=== PATIENT | female | born 1950 | race Caucasian/White ===

== ENCOUNTER 2016-07-01 05:48 | Emergency (ER) | payer MEDICARE, OTHER ==
[2016-07-01] MEDS ORDERED: TYLENOL 325 MG PO ONE (06:05)
--- NOTE | 2016-07-01 06:09 | ERPHSYRPT ---
- History of Present Illness Time Seen by Provider: 07/01/16 06:01 Source: patient Exam Limitations: no limitations Patient Subjective Stated Complaint: REPORTS WITH COUGH, PRODUCTIVE OF YELLOW- BROWN SPUTUM, OVER THE LAST SEVERAL DAYS - FRONTAL NARVAEZ THAT AWOKE HER FROM SLEEP AT 0200 - REPORTS BACK AND NECK PAIN WELL RIB DISCOMFORT Triage Nursing Assessment: WC TO TREATMENT AREA - MOVES ALL EXTREMITIES WITH EQUAL STRENGTH. ALERT/ORIENTED - PLEASANT AFFECT. SKIN PALE/HOT/DRY - NO RASH/ INJURY. RESPS LABORED PER EXERTION ET DEMONSTRATES ORTHOPNEA. PHOTOPHOBIA Physician History: FOR THE PAST 2 DAYS PT HAS HAD COUGH AND INCREASED URINARY FREQUENCY; FOR THE PAST 4 HOURS CHILLS, SHORTNESS OF AIR, HEADACHE, BACK & RIB PAIN. Allergies/Adverse Reactions: Penicillins Allergy (Verified 07/01/16 05:50) Sulfa (Sulfonamide Antibiotics) [Sulfa(Sulfonamide Antibiotics)] Allergy ( Verified 07/01/16 05:50) tramadol [From Ultram] Adverse Reaction (Verified 07/01/16 06:00) Home Medications: Escitalopram Oxalate [Lexapro] 10 mg PO DAILY 09/26/12 [History] Montelukast Sodium 10 mg [Singulair 10 MG] 10 mg PO DAILY 09/26/12 [History] Phenytoin Sodium Extended [Dilantin] 300 mg PO HS 09/26/12 [History] Amlodipine Besylate [Norvasc] 0 mg PO DAILY 02/11/15 [History] Carvedilol [Coreg] 0 mg PO DAILY 02/11/15 [History] Losartan Potassium 1 tab PO DAILY 02/11/15 [History] Loratadine 10 mg [Claritin 10 mg] 10 mg PO DAILY 07/01/16 [History] Potassium Chloride 10 Meq Tab* [Klor Con 10 MEQ] 20 meq PO 07/01/16 [History] Hx Tetanus, Diphtheria Vaccination/Date Given: No Hx Influenza Vaccination/Date Given: Yes Hx Pneumococcal Vaccination/Date Given: Yes Immunizations Up to Date: No - Review of Systems Constitutional: Chills Respiratory: Cough, Dyspnea Cardiac: Other (RIB PAIN) Genitourinary Symptoms: Frequency Musculoskeletal: Back Pain Neurological: Headache Endocrine: No Excessive Sweating All Other Systems: Reviewed and Negative - Past Medical History Pertinent Past Medical History: Yes Neurological History: Epilepsy, Migraines ENT History: Cataracts Cardiac History: Angina, Arrhythmia, Hypertension Respiratory History: Asthma Musculoskeletal History: Arthritis, Degenerative Disk Disease, Osteoporosis History: No Pertinent History Psycho-Social History: No Pertinent History Female Reproductive Disorders: No Pertinent History - Past Surgical History Past Surgical History: Yes Neuro Surgical History: No Pertinent History Cardiac: Cardiac Catheterization Respiratory: No Pertinent History Gastrointestinal: Other Genitourinary: No Pertinent History Musculoskeletal: Orthopedic Surgery Female Surgical History: Hysterectomy Other Surgical History: cataract, left shoulder and hand, cyst off of stomach - Social History Smoking Status: Never smoker Exposure to second hand smoke: No Drug Use: none Patient Lives Alone: No - Female History Hx Last Menstrual Period: N/A Hx Now: No - Nursing Vital Signs Nursing Vital Signs: Initial Vital Signs Temperature 101.0 F Temperature Source Oral Pulse Rate 96 Respiratory Rate 20 Pain Intensity 9 - Physical Exam General Appearance: alert Eye Exam: PERRL/EOMI, eyes nml inspection Ears, Nose, Throat Exam: TMs normal, pharynx normal, moist mucous membranes Neck Exam: normal inspection Respiratory Exam: other (BRONCHIAL B.S. ALL ARMANDO.) Cardiovascular Exam: normal heart sounds Gastrointestinal/Abdomen Exam: soft, normal bowel sounds Back Exam: normal range of motion Extremity Exam: normal inspection, No pedal edema Neurologic Exam: alert, cooperative Skin Exam: warm, dry SpO2 Interpretation: normal SpO2: 96 Oxygen Delivery: Room Air - Course Nursing assessment & vital signs reviewed: Yes - Radiology Exams Chest X-ray Interpretation: Interpreted by me, No Pneumonia Ordered Tests: Active Orders 24 hr Category Date Time Status Clean Catch Urine Specimen STAT Care 07/01/16 06:05 Active IV Insertion STAT Care 07/01/16 06:05 Active CHEST 1 VIEW (PORTABLE) Stat Exams 07/01/16 06:08 Taken AMYLASE Stat Lab 07/01/16 06:19 Completed BLOOD CULTURE Stat Lab 07/01/16 06:19 Received BMP Stat Lab 07/01/16 09:30 Ordered CBC W DIFF Stat Lab 07/01/16 06:19 Completed CMP Stat Lab 07/01/16 06:19 Completed CULTURE,SPUTUM Stat Lab 07/01/16 06:49 Ordered CULTURE,URINE Stat Lab 07/01/16 06:45 Received LIPASE Stat Lab 07/01/16 06:19 Completed Manual Differential NC Stat Lab 07/01/16 06:19 Completed UA W/ MICROSCOPIC Stat Lab 07/01/16 06:06 Completed Respiratory Nebulizer STAT RT 07/01/16 06:47 Completed Medication Summary Generic Name Dose Route Start Last Admin Trade Name Juan PRN Reason Stop Dose Admin Sodium Chloride 1,000 mls @ 250 mls/hr 07/01/16 06:15 07/01/16 06:20 Sodium Chloride 0.9% 1000 Ml IV 07/31/16 06:14 250 mls/hr .Q4H PAZ Administration Azithromycin 250 mls @ 125 mls/hr 07/01/16 06:46 Zithromax 500 Mg/ 250 Ml Nacl Premix IV 07/01/16 08:45 STAT ONE Potassium Chloride 100 mls @ 50 mls/hr 07/01/16 06:50 07/01/16 07:15 Potassium Chloride 20 Meq In Water 100ml IV 07/01/16 08:49 50 mls/hr STAT ONE Administration Potassium Chloride 40 meq 07/01/16 10:00 Potassium Chl 40 Meq/30 Ml Oral Solution PO 07/31/16 09:59 DAILY PAZ Discontinued Medications Generic Name Dose Route Start Last Admin Trade Name Juan PRN Reason Stop Dose Admin Acetaminophen 650 mg 07/01/16 06:05 07/01/16 06:20 Tylenol 325 Mg PO 07/01/16 06:06 650 mg STAT ONE Administration Acetaminophen Confirm 07/01/16 06:12 Tylenol 325 Mg Administered 07/01/16 06:13 Dose 650 mg .ROUTE .STK-MED ONE Albuterol Sulfate 2.5 mg 07/01/16 06:46 07/01/16 06:54 Proventil 2.5 Mg/3 Ml Neb IH 07/01/16 06:47 2.5 mg STAT ONE Administration Albuterol Sulfate Confirm 07/01/16 06:54 Proventil 2.5 Mg/3 Ml Neb Administered 07/01/16 06:55 Dose 2.5 mg IH .STK-MED ONE Hydromorphone HCl 1 mg 07/01/16 06:45 07/01/16 06:57 Dilaudid 1 Mg/Ml Injection IV 07/01/16 06:46 1 mg STAT ONE Administration Hydromorphone HCl Confirm 07/01/16 06:53 Dilaudid 1 Mg/Ml Injection Administered 07/01/16 06:54 Dose 1 mg .ROUTE .STK-MED ONE Hydromorphone HCl 1 mg 07/01/16 07:12 Dilaudid 1 Mg/Ml Injection IV 07/01/16 07:13 STAT ONE Sodium Chloride Confirm 07/01/16 06:13 Sodium Chloride 0.9% 1000 Ml Administered 07/01/16 06:14 Dose 1,000 mls @ ud .ROUTE .STK-MED ONE Ceftriaxone Sodium/Dextrose 50 mls @ 100 mls/hr 07/01/16 06:46 07/01/16 07:00 Rocephin 1 Gm-D5w 50 Ml Bag IV 07/01/16 07:15 100 mls/hr STAT ONE Administration Ceftriaxone Sodium/Dextrose Confirm 07/01/16 06:53 Rocephin 1 Gm-D5w 50 Ml Bag Administered 07/01/16 06:54 Dose 50 mls @ ud IV .STK-MED ONE Potassium Chloride Confirm 07/01/16 07:13 Potassium Chloride 20 Meq In Water 100ml Administered 07/01/16 07:14 Dose 100 mls @ ud IV .STK-MED ONE Promethazine HCl 12.5 mg 07/01/16 06:45 07/01/16 06:56 Phenergan 25 Mg Inj IV 07/01/16 06:46 12.5 mg STAT ONE Administration Promethazine HCl Confirm 07/01/16 06:53 Phenergan 25 Mg Inj Administered 07/01/16 06:54 Dose 25 mg .ROUTE .STK-MED ONE Lab/Rad Data: Laboratory Result Diagrams 07/01/16 06:19 07/01/16 06:19 Laboratory Results 07/01/16 07/01/16 07/01/16 Range/Units 06:19 06:19 06:06 WBC 14.5 H (4.0-10.5) K/mm3 RBC 4.12 (4.1-5.4) M/mm3 Hgb 12.5 (12.0-16.0) gm/dl Hct 37.5 (35-47) % MCV 91.0 (78-100) fl MCH 30.3 (26-32) pg MCHC 33.3 (32-36) g/dl RDW 13.7 (11.5-14.0) % Plt Count 215 (150-450) K/mm3 MPV 10.7 H (6-9.5) fl Segmented Neutrophils 83 H (36.0-66.0) % Band Neutrophils 8 H (0.0-2.0) % Lymphocytes (Manual) 7 L (24-44) % Monocytes (Manual) 2 (0.0-12.0) % Differential Comment NORMAL Platelet Estimate NORMAL (NORMAL) Sodium 138 (136-145) mEq/L Potassium 2.6 L* (3.5-5.1) mEq/L Chloride 99 (98-107) mEq/L Carbon Dioxide 28.2 (21-32) mEq/L Anion Gap 14.7 (5-15) MEQ/L BUN 14 (9-20) mg/dL Creatinine 0.84 (0.55-1.30) mg/dl Estimated GFR > 60 ML/MIN Glucose 136 H (70-110) MG/DL Calcium 8.5 (8.5-10.1) mg/dL Total Bilirubin 0.7 (0.2-1.0) mg/dL AST 26 (15-37) U/L ALT 10 L (12-78) U/L Alkaline Phosphatase 104 (46-116) U/L Serum Total Protein 7.4 (6.4-8.2) gm/dL Albumin 3.8 (3.4-5.0) g/dL Amylase 43 (25-115) U/L Lipase 95 (73-393) U/L Ur Collection Type CLEAN CATCH Urine Color YELLOW (YELLOW) Urine Appearance CLEAR (CLEAR) Urine pH 7.0 (5-6) Ur Specific [place] 1.020 (1.005-1.025) Urine Protein TRACE (Negative) Urine Glucose (UA) NEGATIVE (NEGATIVE) mg/dL Urine Ketones NEGATIVE (NEGATIVE) Urine Nitrite NEGATIVE (NEGATIVE) Urine Bilirubin NEGATIVE (NEGATIVE) Urine Urobilinogen 0.2 (0-1) mg/dL Urine WBC (Auto) NEGATIVE (NEGATIVE) Urine RBC (Auto) TRACE-INTACT (0-5) Balwinder/ul Urine Microscopic RBC 0-2 (0-2) /HPF Urine Microscopic WBC 0-2 (0-5) /HPF Ur Epithelial Cells FEW (FEW) /HPF Urine Bacteria FEW (NEGATIVE) /HPF Urine Mucus SLIGHT (NEGATIVE) /HPF Specimen Received [id number] - Departure Time of Disposition: 07:20 Departure Disposition: Home Clinical Impression: BRONCHITIS, HEADACHE, HYPOKALEMIA Condition: Fair Critical Care Time: No Referrals: LIO JOSEPH [Primary Care Provider] - Instructions: Headache, Bronchitis Additional Instructions: FOLLOW UP WITH PRIVATE DOCTOR TOMORROW. Prescriptions: Guaifenesin/Codeine Phosphate [Robitussin AC Syrup] 10 ml PO Q4H PRN PRN #120 ml PRN Reason: Cough Azithromycin 250 mg [Zithromax 250 MG TABLET] 250 mg PO ZPACK #6 tablet
[2016-07-01] MEDS ORDERED: TYLENOL 325 MG ONE (06:12)
[2016-07-01] MEDS ORDERED: Sodium Chloride 0.9% 1000 ML 1,000 ML ONE (06:13)
[2016-07-01] MEDS ORDERED: Sodium Chloride 0.9% 1000 ML 1,000 ML IV SCH (06:15)
[2016-07-01 06:39] LABS: Mean Corpuscular Hemoglobin 30.3 pg (26-32); Mean Platelet Volume 10.7 fl (6-9.5); Platelet Count 215 K/mm3 (150-450); Red Blood Count 4.12 M/mm3 (4.1-5.4); Red Cell Distribution Width 13.7 % (11.5-14.0); White Blood Count 14.5 K/mm3 (4.0-10.5)
[2016-07-01] MEDS ORDERED: DILAUDID 1 MG/ML INJECTION IV ONE ×2 (06:45→07:12)
[2016-07-01] MEDS ORDERED: Phenergan 25 MG INJ IV ONE (06:45)
[2016-07-01] MEDS ORDERED: Zithromax 500 MG/ 250 ML NaCl Premix 250 ML IV ONE ×2 (06:46→07:23)
[2016-07-01] MEDS ORDERED: PROVENTIL 2.5 MG/3 ML NEB IH ONE ×2 (06:46→06:54)
[2016-07-01] MEDS ORDERED: ROCEPHIN 1 Gm-D5w 50 ml Bag** 50 ML IV ONE ×2 (06:46→06:53)
[2016-07-01 06:47] LABS: ALBUMIN 3.8 g/dL (3.4-5.0); ALKALINE PHOSPHATASE 104 U/L (46-116); ANION GAP 14.7 MEQ/L (5-15); BILIRUBIN,TOTAL 0.7 mg/dL (0.2-1.0); BLOOD UREA NITROGEN 14 mg/dL (9-20); CHLORIDE 99 mEq/L (98-107); Carbon Dioxide 28.2 mEq/L (21-32); Glucose 136 MG/DL (70-110); LIPASE 95 U/L (73-393); SGOT/AST 26 U/L (15-37); SGPT/ALT 10 U/L (12-78); SODIUM 138 mEq/L (136-145); Total Protein 7.4 gm/dL (6.4-8.2)
[2016-07-01 06:49] LABS: Potassium 2.6 mEq/L (3.5-5.1)
[2016-07-01] MEDS ORDERED: POTASSIUM CHLORIDE 20 mEq IN WATER 100ML 100 ML IV ONE ×2 (06:50→07:13)
[2016-07-01 06:53] LABS: Collection Type CLEAN CATCH
[2016-07-01] MEDS ORDERED: DILAUDID 1 MG/ML INJECTION ONE ×2 (06:53→09:20)
[2016-07-01] MEDS ORDERED: Phenergan 25 MG INJ ONE (06:53)
[2016-07-01 06:54] LABS: COMPLETE URINE MICROSCOPIC? YES
[2016-07-01 06:59] LABS: Bacteria FEW /HPF (NEGATIVE); Epithelial Cells FEW /HPF (FEW); Mucus SLIGHT /HPF (NEGATIVE); WBC 0-2 /HPF (0-5)
[2016-07-01 07:05] LABS: BAND 8 % (0.0-2.0); Total Cells Counted 100
[2016-07-01 07:08] LABS: Platelet Estimate NORMAL (NORMAL)
[2016-07-01] MEDS ORDERED: POTASSIUM CHL 40 MEQ/30 ML ORAL SOLUTION ONE (07:31)
[2016-07-01 07:50] VITALS: PULSE 83
--- NOTE | 2016-07-01 08:53 | XRAY ---
Indication: Cough and congestion. Comparison: September 26, 2012 Portable chest remains hyperinflated and clear. Heart and mediastinal structures are stable and within normal limits. Bony thorax intact again with mild osteopenia, degenerative changes, and distal left clavicle resection. Impression: Stable nonacute chest with chronic features.
[2016-07-01 09:19] VITALS: BP 129/59; O2SAT 96
[2016-07-01] MEDS ORDERED: Zofran 4 MG/2 ML VIAL ONE (09:37)
[2016-07-01] MEDS ORDERED: Zofran 4 MG/2 ML VIAL IV ONE (09:37)
[2016-07-01 09:43] LABS: ANION GAP 13.8 MEQ/L (5-15); BLOOD UREA NITROGEN 13 mg/dL (9-20); CHLORIDE 100 mEq/L (98-107); Carbon Dioxide 28.6 mEq/L (21-32); Glucose 144 MG/DL (70-110); Potassium 3.8 mEq/L (3.5-5.1); SODIUM 139 mEq/L (136-145)
[2016-07-01] MEDS ORDERED: POTASSIUM CHL 40 MEQ/30 ML ORAL SOLUTION PO SCH (10:00)
== END 2016-07-01 10:02 | disposition home or self-care (01) ==
LOC: ED 05:48
DX: J40 Bronchitis, not specified as acute or chronic (principal); R51 Headache; E87.6 Hypokalemia; R35.0 Frequency of micturition; R06.02 Shortness of breath; Z79.899 Other long term (current) drug therapy
CPT/HCPCS: 36000; 36415; 71010; 80048; 80053; 81000; 82150; 83690; 85025; 87040; 87086; 94640; 96360; 96361; 96365; 96366; 96367; 96368; 96374; 96375; 96376; 99284; J0456; J0696; J1170; J2405; J2550; J3480

== ENCOUNTER 2018-06-09 06:02 | Day surgery (SDC) | payer MEDICARE, OTHER ==
[2018-06-09] MEDS ORDERED: DIPRIVAN 200 MG/20 ML IV ONE (06:03)
[2018-06-09] MEDS ORDERED: Lactated Ringers 1,000 ML IV ONE (06:13)
[2018-06-09] MEDS ORDERED: Lactated Ringers 1,000 ML IV SCH (06:30)
--- NOTE | 2018-06-09 08:49 | OP ---
SURGERY DATE/TIME: 06/09/2018 0800 PREOPERATIVE DIAGNOSIS: Gastroesophageal reflux. POSTOPERATIVE DIAGNOSES: 1) Status post gastric bypass surgery. 2) Moderate gastritis. PROCEDURE: Esophagogastroduodenoscopy with biopsy. SURGEON: Dr. Griffin. ANESTHESIA: Medications were given by the anesthesia department. BRIEF HISTORY: The patient is a 67 year old white female presenting now with two month history of burning-type chest pain that she has been on proton pump inhibitor with Protonix and even took omeprazole [id number] with no relief. The patient denies taking any nonsteroidal anti-inflammatories although she did take benazepril. The patient was described the risks of the procedure including the risk of perforation, phlebitis, untoward reaction to medication, bleeding and missed lesions. The patient verbalized her understanding and desired to have the procedure performed. DESCRIPTION OF PROCEDURE: The patient was given the medications by the anesthesia department. She had continuous pulse oximetry, ECG monitoring, intermittent blood pressure monitoring and tidal CO2 monitoring during the examination. She was placed in the left lateral decubitus position. A bite block was placed and the flexible Olympus gastroscope was used to intubate the oropharynx. A view of the larynx was obtained and this was normal. The scope was easily introduced in the esophagus which was normal throughout its length. The bypass area was encountered first and inspected and found to be essentially normal. We were able to pass the scope into the stomach as well which appeared to be erythematous throughout without erosions or ulcerations. We were also able to intubate the pylorus and observe that area of the small bowel as well which appeared to be normal. The scope was withdrawn towards the stomach. Retroflex view was obtained without any significant pathology noted on the retroflex view. The scope was then redirected towards the gastric antrum. Biopsies were obtained to rule out the presence of Helicobacter pylori-type organisms. The scope was then removed from the patient who tolerated the procedure well and was sent back to outpatient recovery in good condition.
[2018-06-09 09:27] VITALS: O2SAT 100
[2018-06-09 09:31] VITALS: BP 178/72; PULSE 63
== END 2018-06-09 09:18 | disposition home or self-care (01) ==
LOC: SDC 06:02
PROVIDERS: ATTEND Family Medicine
DX: K29.70 Gastritis, unspecified, without bleeding (principal); K21.9 Gastro-esophageal reflux disease without esophagitis; Z98.84 Bariatric surgery status
CPT/HCPCS: 88305; J2704

== ENCOUNTER 2021-09-18 05:55 | Day surgery (SDC) | payer MEDICARE ==
[~2021-09-18 05:55] MED LIST: Lactated Ringers 1,000 ML IV ONE
[2021-09-18] MEDS ORDERED: Lactated Ringers 1,000 ML IV SCH (06:00)
[2021-09-18 06:39] VITALS: O2SAT 97
[2021-09-18] MEDS ORDERED: DIPRIVAN 200 MG/20 ML IV ONE ×2 (08:00→08:01)
[2021-09-18] MEDS ORDERED: Xylocaine-Mpf 2% 5 Ml Vial ONE (08:00)
[2021-09-18] MEDS ORDERED: Versed 2 MG/2 ML Injection ONE (08:00)
[2021-09-18 09:33] VITALS: BP 162/64; PULSE 60
--- NOTE | 2021-09-18 09:55 | OP ---
SURGERY DATE: 09/18/2021 SURGERY TIME: 0800 PREOPERATIVE DIAGNOSIS: 1. ANEMIA. POSTOPERATIVE DIAGNOSIS: 1. GASTRITIS. APPARENT PREVIOUS ATTEMPT AT OFE-EN-Y PROCEDURE. 2. SIGMOID DIVERTICULOSIS. PROCEDURE: 1. Esophagogastroduodenoscopy. 2. Colonoscopy. SURGEON: Dr. Griffin. ANESTHESIA: MAC. Given by the Anesthesia Department. BRIEF HISTORY: The patient is a 70 y/o WF who has been having anemia issues. She was instructed to have evaluation of the gastrointestinal tract by her tree worker. The patient was appraised of the risks of the procedure including the risk of perforation, phlebitis, untoward reaction to medication, bleeding, and missed lesions. The patient verbalized her understanding and desired to have the procedure performed. DESCRIPTION OF PROCEDURE: The patient was given the medications by the Anesthesia Department. She had continuous pulse oximetry, ECG monitoring, and intermittent BP monitoring during the examination. She was placed in the left lateral decubitus position. A bite block was placed and the flexible Olympus gastroscope was used to intubate the oropharynx. The scope was easily introduced in the esophagus which appeared to be normal throughout its length. The stomach was then entered. From there, we were further directly into the small bowel which appeared to be essentially normal. We withdrew the scope and with careful inspection, the rest of the stomach was more apparent and we were able to evaluate this portion of the stomach. We were able to pass the scope through the pylorus and investigate the duodenum which everything appeared to be normal other than some gastritis. Retroflex view was obtained of the lesser curvature, fundus, and cardia regions of the stomach and these appeared to be normal as well. The scope was then removed from the patient. Next, a digital rectal examination was performed and revealed normal anal sphincter tone and no masses. The flexible Olympus pediatric colonoscope was used to intubate the rectum. A view of the colon was developed sequentially to the cecum. Upon insertion and withdrawal, including a retroflex view in the rectum, was noted a few mild sigmoid diverticula, but no other mucosal lesions were encountered. The scope was removed from the patient who tolerated the procedure well and was sent back to OP recovery in good condition. The prep was noted to be fair.
== END 2021-09-18 09:35 | disposition home or self-care (01) ==
LOC: SDC 05:55
PROVIDERS: ATTEND Family Medicine
DX: K29.70 Gastritis, unspecified, without bleeding (principal); K57.30 Diverticulosis of large intestine without perforation or abscess without bleeding; D64.9 Anemia, unspecified
CPT/HCPCS: 99100; J2250; J2704

== ENCOUNTER 2022-05-14 06:09 | Day surgery (SDC) | payer MEDICARE ==
[2022-05-14] MEDS ORDERED: DEXMEDETOMIDINE 80 MCG/20ML-NS IV ONE (06:10)
[2022-05-14] MEDS ORDERED: Marcaine Mpf 0.5% Vial 30 Ml IJ ONE (06:10)
[2022-05-14] MEDS ORDERED: Versed 2 MG/2 ML Injection ONE (06:14)
[2022-05-14] MEDS ORDERED: SUBLIMAZE 100 MCG/2 ML ONE (06:14)
[2022-05-14] MEDS ORDERED: Zofran 4 MG/2 ML VIAL ONE (06:15)
[2022-05-14] MEDS ORDERED: Xylocaine-Mpf 2% 5 Ml Vial ONE (06:15)
[2022-05-14] MEDS ORDERED: Decadron 4 MG INJ ONE ×2 (06:15→07:37)
[2022-05-14] MEDS ORDERED: Zemuron 100 MG/10 ML ONE (06:16)
[2022-05-14] MEDS ORDERED: CLINDAMYCIN-D5W 900 MG/50 ML*** 900 MG/50 ML BAG IV STA (06:16)
[2022-05-14] MEDS ORDERED: DIPRIVAN 200 MG/20 ML IV ONE (06:16)
[2022-05-14] MEDS ORDERED: Lactated Ringers 1,000 ML IV SCH (06:30)
[2022-05-14] MEDS ORDERED: Naropin 0.5% 30 ML VIAL ONE (06:47)
[2022-05-14] MEDS ORDERED: Pre-Attached Lta Kit TP ONE (06:49)
[2022-05-14] MEDS ORDERED: OFIRMEV 100 ML IV ONE (06:49)
[2022-05-14] MEDS ORDERED: XYLOCAINE 1% HCL 20 ML MDV ONE (06:58)
[2022-05-14] MEDS ORDERED: Lactated Ringers 1,000 ML IV ONE (06:59)
[2022-05-14 07:07] LABS: ANION GAP 9.5 MEQ/L (5-15); BLOOD UREA NITROGEN 8 mg/dL (7-17); CHLORIDE 95 mmol/L (98-107); Calcium 8.7 mg/dL (8.4-10.2); Carbon Dioxide 30 mmol/L (22-30); Creatinine 1 0.57 mg/dL (0.52-1.04); EST GLOMERULAR FILTRATION RATE > 60.0 ML/MIN; Glucose 81 mg/dL (74-106); Potassium 3.8 mmol/L (3.5-5.1); SODIUM 131 mmol/L (137-145)
[2022-05-14] MEDS ORDERED: BRIDION 200MG/2ML IV ONE (09:21)
--- NOTE | 2022-05-14 10:05 | XRAY ---
Indication: Left foot plantar plate repair. Hammertoe correction. Modified Boubacar surgery. Intraoperative fluoroscopy provided for 1 minute 13 seconds. 6 digital spot images ultimately demonstrates fusion 2nd-4th toes with intact traversing screws and K wires also traversing 2nd-4th MTP. There has also been Boubacar surgery involving 2nd-4th metatarsal heads with intact screws. Correlate with intraoperative findings/report.
[2022-05-14 11:15] VITALS: BP 175/83; PULSE 76; O2SAT 99
--- NOTE | 2022-05-14 11:45 | OP ---
SURGERY DATE/TIME: 05/14/2022 0719 PREOPERATIVE DIAGNOSES: 1) Plantar plate tear metatarsophalangeal joints 2 and 3. 2) Hammer toes 2, 3, 4 and 5. 3) Left foot pain. POSTOPERATIVE DIAGNOSES: 1) Plantar plate tear metatarsophalangeal joints 2 and 3. 2) Hammer toes 2, 3, 4 and 5. 3) Left foot pain. PROCEDURES: 1) Plantar plate repair metatarsophalangeal joints 2 and 3. 2) Boubacar osteotomies metatarsophalangeal joints 2, 3 and 4. 3) Hammer toe correction with arthrodesis 2, 3 and 4 along with derotational arthroplasty of the 5th digit. SURGEON: Serge Navarro DPM. MEMORIAL MARKER DESIGNER: None. ANESTHESIA: General plus postoperative local block consisting of 30 cc of a 1:1 mixture of 1% lidocaine plain and 0.5% bupivacaine plain injected in ankle block-type fashion. HEMOSTASIS: Ankle tourniquet set to 250 mm of Mercury for 92 total tourniquet minutes. MATERIALS: Gabriela forefoot for the Boubacar's. Three - 16 x 2.0 cannulated headed partially threaded screws, two - 14's and one - 18 for the hammer toes. Two - 40 x 2.5 headless compression screws as well as a 38 x 2.5 headless compression screw, 4-0 Monocryl, 4-0 Nylon. INJECTABLES: 30 cc of a 1:1 mixture of 1% lidocaine plain and 0.5% bupivacaine plain injected in an ankle block-type fashion. INDICATION FOR SURGERY: Marsha is a very pleasant 71-year-old female who is very well known to my service for plantar plate disruption to the second metatarsophalangeal joint. The patient has been treated for over a year now with conservative modalities. However at this time, there has been significant worsening of the second toe and third toe drifting within the transverse and sagittal plane to develop a crossover toe deformity. The patient does have a minimal bunion. However in conjunction with the pain that she is experiencing, I do not believe that this is driving a majority of her pain. Secondary to the crossover toe, a plan was advised a long time ago for a modified Boubacar so as not to disrupt the blood supply to the metatarsal and to alleviate the sagittal plane deformity in order to make the rest of the foot appear to be natural and prevent any irritation from shoe gear. The patient was also advised that we might have to address any adductovarus to the residual toes especially if there was any sagittal plane differences between the digit. She was amenable to this plan. The patient has failed all conservative treatments up until this point. She wishes to proceed with surgical intervention at this time. All potential complications, risks, benefits of the procedure were discussed at length including but not limited to infection, hematoma, seroma, possibility of floating toe, possibility of painful retained hardware, possible failure of surgical intervention and possible need for further surgical intervention at a later date. The patient understands all of these risks and wishes to proceed. Plenty of time was allowed for the patient to ask questions which were answered to the patient's apparent satisfaction. No guarantees were provided as to the outcome. It is with that we decided to proceed. DESCRIPTION OF PROCEDURE AND FINDINGS: The patient was brought into the OR and placed on the OR table in the supine position. At this time, adequate general anesthesia was administered. A well-padded ankle tourniquet was then applied to the patient's left ankle and set to 250 mm of Mercury. The left foot was then prepped and draped in the typical sterile fashion and lowered onto the surgical field. At this time an Esmarch was utilized to exsanguinate the foot and the tourniquet inflated to 250 mm of Mercury. Linear incisions were made approximately 3 cm over the dorsal aspect of the second and third metatarsophalangeal joints. Careful dissection was carried down. The extensor tendon was lengthened in a [id number] resection. These were retracted out of the way. A linear incision was made through the capsule not a J-stroke as typical with standard Boubacar's. At this time under fluoroscopic guidance, an 18 mm sagittal saw was utilized at the level of the metatarsal neck oriented approximately 45 degrees from the weightbearing surface to the metatarsal in a dorsal proximal to plantar distal orientation with the wider orientation facing medially so as to shorten and dorsiflex the metatarsal head. At this time sagittal saw was carried through both of these sites in a similar fashion. At this time it was determined since there was still some severe transverse plane orientation of the fourth metatarsal that continuing the Boubacar osteotomies to the fourth metatarsal head was appropriate. The same procedure was carried out to the metatarsal neck. At this time K-wires were utilized and a series of headed partially threaded screws were introduced with varying lengths from 14 to 18 mm in length in order to stabilize and gain compression through these sites. At this time the K-wires were removed and x-rays were taken and this was deemed to be in an adequate position with transverse plane deformity largely corrected with some small amount of correction to be maintained through soft tissue balancing at the end of the procedure. At this time a similar process was carried out for digits 2, 3 and 4 where the proximal phalangeal joints were dissected down in a simple elliptical-type form over the dorsal aspect of the proximal phalanx. The proximal phalangeal head was then resected and the base of the middle phalanx was resected. K-wires were retrograded out of the tip of the toe and then anterograded under fluoroscopic guidance down the cortex of the bone making sure to be at the central aspect of the cortex. Headless compression screws were utilized to gain compression and stabilize the digits at this level. Following this, capsular release was continued at the lateral aspect of the second, third and fourth metatarsophalangeal joints and soft tissue balancing with a capsulorrhaphy was continued at this aspect. Following this there was some dorsal subluxation of the fifth digit with adductovarus rotation. The fifth digit had an arthroplasty performed with a derotational skin plasty. The capsule was also released in this case in order to drop the digit from its dorsiflexed position. At this time copious amounts of sterile saline were utilized to flush the surgical sites. Extensor tendons were then repaired utilizing 4-0 Monocryl in a simple buried-type fashion and 4-0 Monocryl was then utilized to coapt the skin edges in a simple buried-type fashion. 4-0 Nylon was then utilized in a horizontal mattress-type fashion to coapt the skin edges. The tourniquet was let down at 92 total tourniquet minutes. Estimated blood loss was determined to be less than 10 cc. K-wires were then anterograded down the metatarsal shafts and fixated into the metatarsal heads so as to allow for the soft tissue balancing to occur over time. A dressing consisting of iodine soaked Adaptic, 4x4, Kerlix and MAYTE was then applied to the left lower extremity under minimal compression. The patient then was reversed from anesthesia and returned to the postoperative anesthesia care unit with vital signs stable and vascular status intact. The patient handled the anesthesia as well as the procedure without significant complication. Postoperative orders as indicated in the patient's discharge chart.
--- NOTE | 2022-05-17 09:46 | XRAY ---
1 minute and 13 seconds of fluoroscopy was used in surgery for a left foot plantar plate repair, hammertoe correction, and Modified Boubacar surgery.
== END 2022-05-14 11:35 | disposition home or self-care (01) ==
LOC: SDC 06:09
PROVIDERS: ATTEND Podiatrist Foot & Ankle Surgery
DX: M20.42 Other hammer toe(s) (acquired), left foot (principal); M79.672 Pain in left foot; S93.525A Sprain of metatarsophalangeal joint of left lesser toe(s), initial encounter
CPT/HCPCS: 28285; 28309; 36415; 73630; 76000; 80048; 93005; 99100; C1713; J1100; J2250; J2405; J2704; J2795; J3010

== ENCOUNTER 2022-07-23 06:27 | Day surgery (SDC) | payer MEDICARE ==
[2022-07-23] MEDS ORDERED: Lactated Ringers 1,000 ML IV SCH (06:30)
[2022-07-23 07:05] LABS: Absolute Neutrophil Ct (ANC) 3.19 x10^3/uL (1.4-6.9); BASOPHIL % 0.6 % (0.0-0.4); Basophil (Absolute #) 0.03 x10^3/uL (0-0.4); Eosinophil % 4.3 % (0.00-5.0); Eosinophil (Absolute #) 0.22 x10^3/uL (0-0.5); Hematocrit 38.4 % (35-47); Hemoglobin 12.4 g/dL (12.0-16.0); IMMATURE GRAN # 0.01 x10^3u/L (0.00-0.03); IMMATURE GRAN % 0.2 % (0.00-0.4); Lymphocyte (Absolute #) 1.09 x10^3/uL (1.0-4.6); Lymphocytes % 21.4 % (24.0-44.0); Mean Cell Volume 99.5 fL (78-100); Mean Corpuscular Hemoglobin 32.1 pg (26-32); Mean Corpuscular Hgb Concent. 32.3 g/dL (32-36); Mean Platelet Volume 10.8 fL (7.5-11.0); Monocyte (Absolute #) 0.56 x10^3/uL (0.0-1.3); Neutrophil % 62.5 % (36.0-66.0); Platelet Count 191 x10^3/uL (150-450); Red Blood Count 3.86 x10^6/uL (4.1-5.4); Red Cell Distribution Width 14.2 % (11.5-14.0); White Blood Count 5.1 x10^3/uL (4.0-10.5)
[2022-07-23 07:18] LABS: ALBUMIN 3.9 g/dL (3.5-5.0); ALKALINE PHOSPHATASE 97 U/L (38-126); ANION GAP 7.7 MEQ/L (5-15); BLOOD UREA NITROGEN 15 mg/dL (7-17); CHLORIDE 99 mmol/L (98-107); Carbon Dioxide 30 mmol/L (22-30); Creatinine 1 0.63 mg/dL (0.52-1.04); EST GLOMERULAR FILTRATION RATE > 60.0 ML/MIN; Glucose 87 mg/dL (74-106); Potassium 4.4 mmol/L (3.5-5.1); SGOT/AST 24 U/L (14-36); SGPT/ALT 15 U/L (0-35); SODIUM 132 mmol/L (137-145); Total Protein 6.8 g/dL (6.3-8.2)
[2022-07-23 07:25] LABS: Slide Review 1 YES
[2022-07-23] MEDS ORDERED: Xylocaine 1% Vial 30 ML PF IJ ONE (08:20)
[2022-07-23] MEDS ORDERED: Marcaine Mpf 0.5% Vial 30 Ml ONE (08:20)
[2022-07-23] MEDS ORDERED: Versed 2 MG/2 ML Injection ONE (08:32)
[2022-07-23] MEDS ORDERED: Zemuron 100 MG/10 ML ONE ×2 (08:32→09:42)
[2022-07-23] MEDS ORDERED: DIPRIVAN 200 MG/20 ML IV ONE (08:32)
[2022-07-23] MEDS ORDERED: SUBLIMAZE 100 MCG/2 ML ONE (08:32)
[2022-07-23] MEDS ORDERED: Sodium Chloride 0.9% 1000 ML 1,000 ML ONE (08:48)
[2022-07-23] MEDS ORDERED: CLINDAMYCIN-D5W 900 MG/50 ML*** 900 MG/50 ML BAG IV ONE (08:56)
[2022-07-23] MEDS ORDERED: BRIDION 200MG/2ML IV ONE (10:05)
--- NOTE | 2022-07-23 10:30 | XRAY ---
Indication: Left foot hardware removal and 2nd-4th metatarsal osteotomy. Intraoperative fluoroscopy provided for 29 seconds. 11 digital spot images submitted for interpretation ultimately demonstrates revision 2nd-4th Boubacar osteotomy with new single fixation screws. Prior fusion of 2nd-4th toes with intact traversing screws. Correlate with intraoperative findings and report.
[2022-07-23 11:25] VITALS: O2SAT 96
[2022-07-23 11:31] VITALS: BP 162/79; PULSE 57
--- NOTE | 2022-07-23 14:56 | OP ---
SURGERY DATE/TIME: 07/23/2022 0834 PREOPERATIVE DIAGNOSES: 1) Painful orthopedic hardware in situ. 2) Pain left foot. 3) Metatarsal deformity. 4) Transverse plane adduction of digits 2, 3 and 4. POSTOPERATIVE DIAGNOSES: 1) Painful orthopedic hardware in situ. 2) Pain left foot. 3) Metatarsal deformity. 4) Transverse plane adduction of digits 2, 3 and 4. PROCEDURES: 1) Removal of hardware 2, 3 and 4th metatarsal head. 2) Revision of Boubacar 2, 3 and 4th metatarsal head. SURGEON: Serge Navarro DPM. GLASS FRAME FITTER: None. ANESTHESIA: General. HEMOSTASIS: Ankle tourniquet set to 200 mm of Mercury for a total of 60 tourniquet minutes. ESTIMATED BLOSS LOSS: Less than 5 cc. INJECTABLES: 30 cc of 1:1 mixture of 1% lidocaine plain and 0.5% bupivacaine plain injected in a Yap block-type fashion. INDICATION FOR SURGERY: Marsha is a very pleasant 71-year-old female who had a plantar plate tear of the second metatarsophalangeal joint as well as significant transverse plane deformity. The patient did have surgical intervention for this issue sometime late last year. Following this the patient did have injury to the foot and distal aspect of the toes which caused distraction of the heads and dressing compressed the toes into an adducted position. The patient was happy with the reduction in pain however she did have crossover deformity of the second digit over the hallux which caused her significant amount of pain with shoe gear and ambulation. At this time she wishes to proceed with revision for surgical outcome and the patient understands all risks, benefits and complications of surgery at this time including but not limited to infection, hematoma, seroma, possibility of delayed wound healing, nonwound healing, possibility of delayed bone healing and possibility of nonunion. Plenty of time was allowed for the patient to ask questions which were answered to the patient's apparent satisfaction. No guarantees were provided as to the outcome. It is with that we decided to proceed. DESCRIPTION OF PROCEDURE AND FINDINGS: The patient is brought into the OR and placed on the OR table. The patient was then administered general anesthesia until the patient was sedated. Following this a well-padded ankle tourniquet was applied to the patient's left ankle. The left foot was prepped and draped in the typical sterile fashion and lowered onto the surgical field. At this time Esmarch was utilized to exsanguinate the foot and the tourniquet was inflated to 200 mm of Mercury. At this time an incision was made in the foot print of the scar over the second metatarsophalangeal joint of the second metaphalangeal joint being careful not to damage any neurovascular structures with the dissection. At this time the joint was identified at the dorsal aspect of the second metatarsal space. Two screws were removed from the site. Following this, a capsular dissection was performed. The digit did not reduce to its straight positon so we proceeded with the second metatarsal head Boubacar osteotomy. The metatarsal head capsular fragment was displaced medially and proximally in order to drop the digit as well as change the orientation of the toe from crossover orientation to parallel with the hallux. Following this pinning was performed utilizing a 0.65 K-wire. Following this a similar procedure was carried out for metatarsals 3 and 4 removing the hardware from the surgical site after making the incision retracting and taking out of the way and inspecting the metatarsal head. These sites were pinned. A metatarsal over hang was resected and subsequently for 2nd, 3rd and 4th metatarsal heads a 2.0 x 14, 2.0 x 14 and a 2.0 x 10 partially threaded headed cannulated screw was introduced from proximal dorsal to plantar distal orientation gaining capture of metatarsal head and having good fixation over these sites. Multiple views were inspected and deemed to be in adequate position without any sites of irritation. Following this, copious amounts of sterile saline were utilized to flush the surgical site. Soft tissue balancing at this time was performed 2nd metaphalangeal joint and 3rd metaphalangeal joint performing a capsulotomy as well as capsulorrhaphy to lateral aspect of the joint. Following this copious amounts of sterile saline were utilized were utilized to flush the site. 4-0 Monocryl was utilized to coapt the subcutaneous skin edges and 3-0 Nylon utilized to prepare skin in horizontal mattress-type fashion. Tourniquet was let down at this time with a total of 60 total tourniquet minutes. A dressing consisting of Betadine, Adaptic, 4x4, Kerlix and MAYTE were applied to the patient's left foot. The patient was then reversed from anesthesia and returned to the postoperative anesthesia care unit with vital signs stable and vascular status intact. The patient handled the anesthesia as well as the procedure without complication. Postoperative orders as indicated in the patient's discharge chart.
== END 2022-07-23 11:45 | disposition home or self-care (01) ==
LOC: SDC 06:27
PROVIDERS: ATTEND Podiatrist Foot & Ankle Surgery
DX: T84.84XA Pain due to internal orthopedic prosthetic devices, implants and grafts, initial encounter (principal); M79.672 Pain in left foot; M21.962 Unspecified acquired deformity of left lower leg; M24.575 Contracture, left foot
CPT/HCPCS: 20680; 28308; 36415; 73630; 76000; 80053; 85025; 93005; C1713; J2001; J2250; J2704; J3010

== ENCOUNTER 2022-09-11 17:13 | Emergency (ER) | payer MEDICARE ==
[2022-09-11 17:33] VITALS: BP 173/72; PULSE 65; O2SAT 99
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
[2022-09-11] MEDS ORDERED: TORAdol 30 mg Injection IM ONE (18:28)
[2022-09-11] MEDS ORDERED: TORAdol 30 mg Injection ONE (18:30)
--- NOTE | 2022-09-11 20:28 | XRAY ---
Indication: Pain following fall. Comparison: None 3 view left wrist demonstrates osteopenia and nondisplaced ulnar styloid fracture. Elsewhere mild 1st metacarpal multangular degenerative changes and old distal 5th metacarpal fracture. No other bony, articular, or soft tissue abnormalities.
--- NOTE | 2022-09-11 20:28 | XRAY ---
Indication: Pain following fall. Comparison: None 3 view left elbow demonstrates osteopenia and nondisplaced transverse fractures medial and lateral epicondyles with effusion. 1.4 cm fracture fragment anteriorly presumed from capitellum. No other bony, articular, or soft tissue abnormalities.
== END 2022-09-11 18:37 | disposition home or self-care (01) ==
LOC: ED 17:13
DX: S42.412A Displaced simple supracondylar fracture without intercondylar fracture of left humerus, initial encounter for closed fracture (principal); W18.39XA Other fall on same level, initial encounter; Y93.K1 Activity, walking an animal; M25.522 Pain in left elbow; M25.532 Pain in left wrist; I10 Essential (primary) hypertension; Z79.899 Other long term (current) drug therapy
CPT/HCPCS: 29105; 73080; 73110; 96372; 99283; J1885

== ENCOUNTER 2023-02-11 16:01 | Emergency (ER) | payer MEDICARE ==
--- NOTE | 2023-02-11 16:08 | ERPHSYRPT ---
- History of Present Illness Time Seen by Provider: 02/11/23 16:07 Source: patient, family (Patient's daughter provided independent additional history) Exam Limitations: no limitations Physician History: This is a 72-year-old white female patient has a history of hypertension, seizure disorder, anxiety/depression issues, osteoporosis and gastroesophageal reflux disease and presents to the emergency department transported by the patient's daughter and fell approximately 2 hours prior to arrival. Her left hip took the majority of the injury. She also has some left elbow pain. However, she specifically stated she thinks her left elbow is fine and does not want an x-ray of this left elbow. Patient can walk and can bear weight but it hurts to do so in the area of her left hip. She did not lose consciousness. She has no head or neck pain. She has no chest pain. She has no shortness of breath. Patient cannot take tramadol but has taken hydrocodone in the past and has not had a problem with this medication. Occurred: just prior to arrival Reason for Fall: tripped Injuries/Pain Location: pelvis Loss of Consciousness: no loss of consciousness (Left hip) Quality: aching Severity of Pain-Max: moderate Severity of Pain-Current: mild Modifying Factors: Improves With: movement (To moderate) Associated Symptoms (Fall): denies symptoms Allergies/Adverse Reactions: Penicillins Allergy (Mild, Verified 02/11/23 16:33) Hives Sulfa (Sulfonamide Antibiotics) [Sulfa(Sulfonamide Antibiotics)] Allergy (Mild, Verified 02/11/23 16:33) Hives tramadol [From Ultram] Adverse Reaction (Verified 02/11/23 16:33) Home Medications: Escitalopram Oxalate [Lexapro] 20 mg PO DAILY 09/26/12 [History] Montelukast Sodium 10 mg [Singulair 10 MG] 10 mg PO DAILY 09/26/12 [History] Phenytoin Sodium Extended [Dilantin] 300 mg PO HS 09/26/12 [History] Amlodipine Besylate [Norvasc] 20 mg PO DAILY 02/11/15 [History] Losartan Potassium 100 mg PO DAILY 02/11/15 [History] Potassium Chloride Tab* [Klor Con] 20 meq PO BID 07/01/16 [History] PANTOPRAZOLE 40 mg Tablet [Protonix 40MG Tablet] 40 mg PO BID 06/07/18 [History] ALPRAZolam [Alprazolam] 2 mg PO BID PRN 09/14/21 [History] hydroCHLOROthiazide [Hydrochlorothiazide] 12.5 mg PO BID 09/14/21 [History] Doxazosin Mesylate 2 mg [Cardura 2 mg] 2 mg PO DAILY 02/11/23 [History] Hx Tetanus, Diphtheria Vaccination/Date Given: Yes Hx Influenza Vaccination/Date Given: No Hx Pneumococcal Vaccination/Date Given: No Travel Risk - International Travel Have you traveled outside of the country in past 3 weeks: No - Coronavirus Screening Are you exhibiting any of the following symptoms?: No Close contact with a COVID-19 positive Pt in past 14-21 Days: No - Vaccine Status Have you recieved a Covid-19 vaccination: Yes 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: [email or web address] - Review of Systems Constitutional: No Symptoms Eyes: No Symptoms Ears, Nose, & Throat: No Symptoms Respiratory: No Symptoms Cardiac: No Symptoms Abdominal/Gastrointestinal: No Symptoms Genitourinary Symptoms: No Symptoms Musculoskeletal: Fall, Injury (Left hip) Skin: No Symptoms Neurological: No Symptoms Psychological: No Symptoms Endocrine: No Symptoms Hematologic/Lymphatic: No Symptoms Immunological/Allergic: No Symptoms All Other Systems: Reviewed and Negative - Past Medical History Pertinent Past Medical History: Yes Neurological History: Migraines, Seizures ENT History: Cataracts Cardiac History: Hypertension Respiratory History: Asthma Endocrine Medical History: No Pertinent History Musculoskeletal History: Arthritis, Fractures GI Medical History: GERD History: No Pertinent History Psycho-Social History: No Pertinent History Female Reproductive Disorders: No Pertinent History Other Medical History: L Foot Surgical Repair (05/14/22 and 07/2022), Hysterectomy, L Proximal Humerus Fracture (surgical repair, ~2003), R elbow fracture and R wrist fracture (childhood), multiple rib fractures (history of) - Past Surgical History Past Surgical History: Yes Neuro Surgical History: No Pertinent History Cardiac: Cardiac Catheterization Respiratory: No Pertinent History Gastrointestinal: Other Genitourinary: No Pertinent History Musculoskeletal: Orthopedic Surgery Female Surgical History: Hysterectomy Other Surgical History: cataract, left shoulder and hand, cyst off of stomach,bone spur removed, left foot - Social History Smoking Status: Never smoker Exposure to second hand smoke: No Drug Use: none Patient Lives Alone: No - Nursing Vital Signs Nursing Vital Signs: Initial Vital Signs Temperature 97.4 F 02/11/23 16:27 Pulse Rate 79 02/11/23 16:27 Respiratory Rate 18 02/11/23 16:27 Blood Pressure 172/101 02/11/23 16:27 O2 Sat by Pulse Oximetry 95 02/11/23 16:27 Pain Scale Pain Intensity 5 - [place] Coma Score Best Eye Response (Claudia): (4) open spontaneously Best Verbal Response (Claudia): (5) oriented Best Motor Response (Claudia): (6) obeys commands [place] Total: 15 - Physical Exam General Appearance: no apparent distress, alert Head Injury: no evidence of injury Eye Exam: PERRL/EOMI, eyes nml inspection ENT Exam: airway nml, nml ext.inspection Neck Exam: supple, trachea midline, full range of motion, normal alignment, normal inspection Respiratory/Chest Exam: normal breath sounds, No chest tenderness, No respiratory distress, No crepitus Cardiovascular Exam: normal heart sounds, regular rate/rhythm Gastrointestinal Exam: soft, normal bowel sounds, No tenderness Rectal Exam: not done Back Exam: normal inspection, normal range of motion, No CVA tenderness, No vertebral tenderness Extremity Exam: normal inspection, normal range of motion, hip tenderness (Left to palpation), pain with movement (Left hip) Neurologic Exam: alert, oriented x 3, cooperative, supervisor process testing II-XII nml as tested, normal mood/affect, sensation nml Skin Exam: normal color, warm, dry SpO2 Interpretation: normal O2 Delivery: Room Air - Course Nursing assessment & vital signs reviewed: Yes Ordered Tests: Active Orders 24 hr Category Date Time Status PELVIS WITHOUT CONTRAST [CT] Stat Exams 02/11/23 17:06 Taken Medication Summary Discontinued Medications Generic Name Dose Route Start Last Admin Trade Name Juan PRN Reason Stop Dose Admin Oxycodone/Acetaminophen 1 tab 02/11/23 17:24 02/11/23 18:11 Oxycodone / Apap 10/325 Mg 1 Tablet PO 02/11/23 17:25 1 tab STAT STA Administration Oxycodone/Acetaminophen Confirm 02/11/23 18:07 Oxycodone / Apap 10/325 Mg 1 Tablet Administered 02/11/23 18:08 Dose 1 tab .ROUTE .STK-MED ONE - Progress Progress: improved, pain not gone completely Progress Note: 02/11/23 17:45 This patient's medical issue is 1 of low complexity. Level complexity in the work-up performed is based on review of the patient's past medical history, review of the patient's medication list, review the patient's drug allergy list, history of present illness and physical findings on examination. The work-up in this patient includes writing the patient with oxycodone 10/[address] scan of the pelvis to evaluate her left hip. 02/11/23 18:35 The patient appears to be tolerating the oxycodone medication. The CT scan of the pelvis was interpreted by the radiologist. There is a nondisplaced fracture of the left superior and inferior rami. Patient has a walker and will use this walker at home. Patient is unsure if she can make it to her pharmacy before it closes. We will provide her with 2 take-home Percocet 5/325 and remotely send additional Percocet 5/325 tablets to her pharmacy that she can car pick up driver tomorrow. Counseled pt/family regarding: diagnosis, need for follow-up, rad results Medical Desision Making - Independent Historian Additional History obtained from: Child (Daughter) - Diagnostic Testing Diagnostic test were ordered, analyzed, and reviewed by me: Yes Radiological Interpretation: Reviewed by me, Teleradiologist Report - Risk of complications The pt has a mod risk of morbidity or mortality based on: Need for prescription drug management - Departure Departure Disposition: Home Clinical Impression: Fracture of left inferior pubic ramus, Fracture of right inferior pubic ramus Condition: Stable Critical Care Time: No Referrals: EDMUNDO VARGAS NP [Primary Care Provider] - Follow up/PCP as directed Additional Instructions: Ambulation with walker as tolerated. Ice pack to tender area 3 times a day for the next 48 hours. Add ibuprofen 600 mg orally with food 3 times a day for the next 5 days. Take your Percocet medication and your other medication as prescribed. Call your primary care provider on 02/14/2023 to make arrangements for follow-up appointment for further evaluation management and referral to orthopedic clinic/surgeon if indicated Prescriptions: Oxycodone HCl/Acetaminophen [Percocet 5-325 mg Tablet] 1 each PO Q8H PRN PRN #8 tablet MDD 3 PRN Reason: Moderate To Severe Pain
[2023-02-11 16:40] VITALS: BP 172/101; PULSE 79; RESP 18; TEMP 97.4; O2SAT 95
[2023-02-11] MEDS ORDERED: OXYCODONE-ACETAMINOPHEN 10-325 PO STA (17:24)
[2023-02-11] MEDS ORDERED: OXYCODONE-ACETAMINOPHEN 10-325 ONE (18:07)
[2023-02-11] MEDS ORDERED: PERCOCET TABLET 5/325MG PO STA (18:34)
[2023-02-11] MEDS ORDERED: PERCOCET TABLET 5/325MG ONE (18:44)
--- NOTE | 2023-02-11 20:45 | XRAY ---
Indication: Left hip pain following fall. Unable to weight-bear. Multiple contiguous axial images obtained through the pelvis with special attention to the osseous structures. Sagittal and coronal reformatted images obtained. Comparison: None Osseous structures demineralized. Nondisplaced fracture involving the left superior pubic ramus. Left inferior pubic ramus demonstrates tiny cortical fracture. No other acute fracture, dislocation, or suspicious bony lesions. SI joints are bilaterally symmetric. Visualized lower lumbar spine demonstrates moderate lumbosacral junction degenerative disc disease and small Schmorl node last lumbar segment. Visualized noncontrasted soft tissues demonstrates mild scattered aortoiliac calcifications and right gluteal calcified injection granulomas. Visualized pelvic contents demonstrates hysterectomy. No free fluid/air. Impression: 1. Nondisplaced fractures left superior and inferior pubic rami as detailed. 2. Chronic findings including osteopenia, lumbosacral junction degenerative disc disease, Schmorl node last lumbar segment, and arteriosclerotic disease.
== END 2023-02-11 18:54 | disposition home or self-care (01) ==
LOC: ED 16:01
DX: S32.592A Other specified fracture of left pubis, initial encounter for closed fracture (principal); S32.591A Other specified fracture of right pubis, initial encounter for closed fracture; W19.XXXA Unspecified fall, initial encounter; M25.552 Pain in left hip; M25.522 Pain in left elbow; I10 Essential (primary) hypertension; Z79.891 Long term (current) use of opiate analgesic; Z79.899 Other long term (current) drug therapy
CPT/HCPCS: 72192; 99283; A9270-GY

== ENCOUNTER 2024-02-07 07:35 | Day surgery (SDC) | payer MEDICARE ==
[2024-02-07] MEDS: Lactated Ringers 1,000 ML IV SCH (07:56)
[2024-02-07] MEDS: CLINDAMYCIN-D5W 900 MG/50 ML*** 900 MG/50 ML BAG IV ONE (07:57)
[2024-02-07] MEDS: NEURONTIN PO ONE (07:57)
[2024-02-07] MEDS: celeBREX 100 MG PO ONE (07:57)
[2024-02-07] MEDS: TYLENOL EXTRA STRENGTH 500 MG PO ONE (07:57)
[2024-02-07] MEDS: Decadron 4 MG PO ONE (07:58)
[2024-02-07 08:11] VITALS: RESP 18
[2024-02-07 08:13] LABS: Hematocrit 37.5 % (34.1-44.9); Hemoglobin 12.8 g/dL (11.2-15.7); Mean Cell Volume 93.8 fL (79.4-94.8); Mean Corpuscular Hgb Concent. 34.1 g/dL (32.2-35.5); Platelet Count 216 x10^3/uL (182-369); Red Cell Distribution Width 14.8 % (11.7-14.4); White Blood Count 4.3 x10^3/uL (3.98-10.04)
[2024-02-07 08:26] LABS: ALBUMIN 4.1 g/dL (3.5-5.0); ANION GAP 10.9 MEQ/L (5-15); BILIRUBIN,TOTAL 0.4 mg/dL (0.2-1.3); Calcium 8.6 mg/dL (8.4-10.2); Creatinine 1 0.7 mg/dL (0.52-1.04); EST GLOMERULAR FILTRATION RATE 90.1 ML/MIN; Potassium 4.1 mmol/L (3.5-5.1); Total Protein 6.9 g/dL (6.3-8.2)
[2024-02-07] MEDS ORDERED: Decadron 4 MG INJ ONE (12:20)
[2024-02-07] MEDS ORDERED: Zofran 4 MG/2 ML VIAL ONE (12:20)
[2024-02-07] MEDS ORDERED: ROCURONIUM BROMIDE IV ONE (12:20)
[2024-02-07] MEDS ORDERED: DIPRIVAN 200 MG/20 ML IV ONE (12:20)
[2024-02-07] MEDS ORDERED: TORAdol 30 mg Injection ONE (12:20)
[2024-02-07] MEDS ORDERED: Xylocaine-Mpf 2% 5 Ml Vial ONE (12:20)
[2024-02-07] MEDS ORDERED: BRIDION 200MG/2ML IV ONE (12:20)
[2024-02-07] MEDS ORDERED: SUBLIMAZE 100 MCG/2 ML ONE ×2 (12:21→13:51)
[2024-02-07] MEDS ORDERED: Marcaine Mpf 0.5% Vial 30 Ml ONE (12:24)
[2024-02-07] MEDS ORDERED: XYLOCAINE 1% HCL 20 ML MDV ONE (12:25)
[2024-02-07] MEDS ORDERED: Lactated Ringers 1,000 ML IV ONE (13:41)
--- NOTE | 2024-02-07 14:32 | XRAY ---
Indication: Left foot hardware removal. Flexor tendon transfer 3 and 4. Modified Boubacar osteotomy, and capsulotomy. Intraoperative fluoroscopy provided for 23 seconds. 6 digital spot images submitted for interpretation ultimately demonstrates exchange 2nd/3rd/4th metatarsal head screws. Stable 2nd/3rd/4th phalanx fusion with intact screws. Correlate with intraoperative findings/report.
[2024-02-07 15:27] VITALS: BP 143/59; PULSE 75; TEMP 98.2; O2SAT 99
--- NOTE | 2024-02-08 09:17 | OP ---
SURGERY DATE/TIME: 02/07/2024 6073 - [id number] PREOPERATIVE DIAGNOSES: 1) Left foot flexor contracture. 2) Hammertoe, left foot, digits 2, 3, 4 and 5. 3) Transverse plane deformity, left foot, digits 2, 3, 4 and 5. 4) Left foot pain. POSTOPERATIVE DIAGNOSES: 1) Left foot flexor contracture. 2) Hammertoe, left foot, digits 2, 3, 4 and 5. 3) Transverse plane deformity, left foot, digits 2, 3, 4 and 5. 4) Left foot pain. PROCEDURES: 1) Hardware removal third metatarsal. 2) Modified Boubacar osteotomy, third metatarsal. 3) Flexor digitorum longus tendon transfers digits 3 and 4. 4) Capsulotomies digits 2, 3, 4 and 5. SURGEON: Serge Navarro DPM GLAZING SUPERINTENDENT: None. ANESTHESIA: General. HEMOSTASIS: Pressure dressing. ESTIMATED BLOOD LOSS: Approximately 10 mL. MATERIALS: 4-0 Monocryl, 2-0 Vicryl, and 4-0 nylon and a 2.0 x 14 mm partially threaded cannulated screw for the Boubacar osteotomy. INJECTABLES: 20 mL of 1:1 mixture of 1% lidocaine plain and 0.5% bupivacaine plain injected in a 4-point block-type fashion. INDICATIONS: Marsha is a very pleasant 73-year-old female who is well known to my service for a plantar plate repair as well as hammertoe corrections to the left lower extremity. As a result, patient has had worsening of the transverse plane issue that has resulted in the third digit underlapping the second digit. Most of her pain with the ambulation and shoe gear and associated with the underlapping of third and fourth digit. As a result, the patient has complications and wishes to proceed with surgical intervention if it leads to less pain. Patient is made aware of all the risks, complications and benefits of surgical intervention at this time but not limited to infection, hematoma or seroma, ossible delayed wound healing, nonwoundhealing and possible need for further surgical intervention at a later date. No guarantees were provided and welcomed surgical intervention. Plenty of time was allowed for the patient to ask questions, which were answered to her apparent satisfaction. It is at this time, we decided to proceed. DESCRIPTION OF PROCEDURE AND FINDINGS: Patient was brought to the operating room, placed on the operating room table in the supine position. At this time, general anesthesia was administered until the patient was adequately sedated. Following this, the left lower extremity was prepped and draped in the typical sterile fashion and lowered onto the surgical field. At this time, a linear incision was made directly and appropriate over the third metatarsal where very quickly the extensor tendon and scar tissue was identified and a Z lengthening tenotomy was performed, which was retracted out of the site for later use of tendon balance. From that standpoint, the hardware was then removed and was assessed. From that standpoint, a modified Boubacar with the orientation of the current piece was made from a dorsal proximal to plantar distal with orientation was decided and 18 mm sagittal saw was utilized to resect the chen translating medially in order to get some lateral deviation just so slightly. From that standpoint, the linear capsulotomy was performed of the third metatarsal which improved the position slightly. K-wire was then utilized and a 2.0 x 14 mm partially-threaded headed screw was then introduced obtaining excellent compression through the osteotomy site. From that standpoint, this was made due to the fact that there was still some medial deviation of the third digit; however, more so in a relaxed position at this time to proceed with the flexor digitorum longus tendon transfer. A linear incision was made at the midline of lateral aspect of digit. This was carried down to the level of bone and full-thickness undermining of the flap was performed until the flexor digitorum longus tendon was identified. This was resected at its most distal point. This was brought proximally over to the top of the extensor digitorum longus. Once underneath then significant tension was held. A curved mini was utilized to pin this position and a 2-0 Vicryl then utilized to suture this into position. Following this, capsulotomy was performed of third metatarsophalangeal joint laterally. The position of the toe was deemed to be adequate. There was significant dorsiflexion contracture of second MPJ, so the plate was introduced underneath the incision of the third and released the capsule allowing for more flexibility of the second. Following this, a very similar procedure was carried out over the fourth metatarsal. However, a Boubacar osteotomy was not performed nor was hardware removed. The flexor digitorum longus tendon was transferred from its plantar aspect and brought to dorsal aspect of the foot gaining significant improvement of the transverse plane deviation. There was a dorsal contracture of the fifth digit where a capsulotomy was performed percutaneously; however, this did not work so a Z lengthening tenotomy of the 5th extensor digitorum longus was performed dropping the toe into the same plane as the remainder of the toes. Following this, copious amounts of sterile utilized to flush the surgical site; 4-0 Monocryl was then utilized to coapt the subcutaneous edges in a simple interrupted buried-type fashion and then 4-0 nylon was then utilize to coapt the skin edges in a horizontal mattress-type fashion. Following this, a dressing consisting of Betadine, Adaptic, 4 x 4's, Kerlix, and Jerrell was applied to the patient's left lower extremity. Patient was then reversed from anesthesia and returned to the postoperative anesthesia care unit with vital signs stable and vascular status intact. The patient handled the anesthesia as well as the procedure without significant complication. Postoperative orders as indicated in the patient's discharge chart.
--- NOTE | 2024-02-08 10:28 | XRAY ---
23 seconds of fluoroscopy was used in surgery for a left foot hardware removal. Flexor tendon transfer 3 and 4. Modified Boubacar osteotomy, and capsulotomy.
== END 2024-02-07 15:45 | disposition home or self-care (01) ==
LOC: SDC 07:35
PROVIDERS: ATTEND Podiatrist Foot & Ankle Surgery
DX: M24.572 Contracture, left ankle (principal); M20.42 Other hammer toe(s) (acquired), left foot; M21.6X2 Other acquired deformities of left foot; M79.672 Pain in left foot
CPT/HCPCS: 20680; 27691; 28270; 28308; 36415; 73630; 76000; 80053; 85027; 93005; C1713; 99100; J1100; J1885; J2405; J2704; J3010; A9270-GY

== ENCOUNTER 2025-04-30 09:50 | Observation (INO) | payer MEDICARE ==
[2025-04-30 10:24] LABS: BASOPHIL % 0.6 % (0.1-1.2); Basophil (Absolute #) 0.04 x10^3/uL (0.01-0.08); Eosinophil (Absolute #) 0.49 x10^3/uL (0.04-0.36); Hematocrit 40.4 % (34.1-44.9); Hemoglobin 13.2 g/dL (11.2-15.7); IMMATURE GRAN # 0.03 x10^3u/L (0.001-0.031); IMMATURE GRAN % 0.4 % (0.001-0.429); Lymphocyte (Absolute #) 1.28 x10^3/uL (1.18-3.74); Mean Corpuscular Hemoglobin 30.4 pg (25.6-32.2); Mean Corpuscular Hgb Concent. 32.7 g/dL (32.2-35.5); Monocyte (Absolute #) 0.62 x10^3/uL (0.24-0.86); NUCLEATED RBC # 0.00 x10^3u/L (0.00-0.012); NUCLEATED RBC % 0.0 % (0.00-0.2); Platelet Count 304 x10^3/uL (182-369); Red Blood Count 4.34 x10^6/uL (3.93-5.22); White Blood Count 6.8 x10^3/uL (3.98-10.04)
[2025-04-30 10:35] LABS: Calcium 8.9 mg/dL (8.4-10.2); Carbon Dioxide 23 mmol/L (22-30); Creatinine 1 0.74 mg/dL (0.52-1.04); EST GLOMERULAR FILTRATION RATE 83.8 ML/MIN; ETHYL ALCOHOL < 10 mg/dL (0-10); Glucose 107 mg/dL (74-106); Potassium 3.8 mmol/L (3.5-5.1); SGOT/AST 27 U/L (14-36); SGPT/ALT 14 U/L (0-35); Total Protein 7.3 g/dL (6.3-8.2)
--- NOTE | 2025-04-30 10:35 | XRAY ---
Indication: Dizziness. Multiple contiguous axial images obtained through the head without contrast. Comparison: None Age-appropriate global atrophy and moderate periventricular degenerative microischemia bilaterally. No acute intracranial hemorrhage, abnormal extra-axial fluid collection, or mass effect. 4th ventricle is midline without hydrocephalus. Bony calvarium intact. Mild mucosal thickening both maxillary/left ethmoid/right sphenoid sinuses. Mastoid air cells are clear. Impression: Nonacute senile brain. Incidental paranasal sinus disease.
--- NOTE | 2025-04-30 10:49 | ERPHSYRPT ---
- History of Present Illness Time Seen by Provider: 04/30/25 10:36 Source: patient Exam Limitations: no limitations Patient Subjective Stated Complaint: pt woke at 0600 and was having breakfast and was having a hard time holding her coffee cup and states that her left arm wouldn't do what she tells it to do, she laid back in the bed and her daughter checked on her at 0900 and that is when she said that she was having problems with her left leg, pt attempted to stand and stated that she couldn't move her leg right or stand on it Triage Nursing Assessment: Pt brought to the ER by her mother, hypertensive, denies pain at this time, pulses normal, skin n/w/d, denies chest pain, no SOB, pt has left sided defecits, BS 98, unable to stand or move without complete assistance Physician History: Patient is a 74-year-old female history of epilepsy hypertension asthma GERD presents to our ED for evaluation of strokelike symptoms. Patient states she woke at 6 AM this morning to have breakfast. Patient observed that she had a hard time holding her cup of coffee with her left hand. Patient went back to bed and awoke 9 hours later at 9 AM. At that time she observed difficulty with her left leg. She had difficulty standing. No associated chest pain or shortness of breath. No nausea vomiting or diaphoresis. Symptoms are mild to moderate in intensity. Patient voices no other complaints or concerns at this time. Portions of this note were created with voice recognition technology. There may be grammatical, spelling, punctuation or sound alike errors Timing/Duration: today Severity: moderate Modifying Factors: Improves With: nothing Associated Symptoms: denies symptoms Allergies/Adverse Reactions: Penicillins Allergy (Mild, Verified 02/07/24 07:47) Hives Sulfa (Sulfonamide Antibiotics) [Sulfa(Sulfonamide Antibiotics)] Allergy (Mild, Verified 02/07/24 07:47) Hives tramadol [From Ultram] Adverse Reaction (Verified 02/07/24 07:47) Home Medications: Escitalopram Oxalate [Lexapro] 20 mg PO DAILY 09/26/12 [History] Montelukast Sodium 10 mg [Singulair 10 MG] 10 mg PO DAILY 09/26/12 [History] Phenytoin Sodium Extended [Dilantin] 300 mg PO HS 09/26/12 [History] Amlodipine Besylate [Norvasc] 10 mg PO DAILY 02/11/15 [History] Losartan Potassium 100 mg PO DAILY 02/11/15 [History] Potassium Chloride Tab* [Klor Con] 10 meq PO BID 07/01/16 [History] PANTOPRAZOLE 40 mg Tablet [Protonix 40MG Tablet] 40 mg PO BID 06/07/18 [History] ALPRAZolam [Alprazolam] 2 mg PO BID PRN 09/14/21 [History] Celecoxib 100 mg [celeBREX 100 MG] 100 mg PO BID 05/18/24 [History] Cyanocobalamin 1000 Mcg/ml [Cyanocobalamin B-12 1000 MCG/ML] 1,000 mcg SQ 1XONLY 04/30/25 [History] Doxazosin Mesylate 2 mg PO DAILY 04/30/25 [History] Ergocalciferol (Vitamin D2) [Vitamin D2] 1,250 mcg PO WEEKLY 04/30/25 [History] Ezetimibe 10 mg [Zetia 10 MG] 10 mg PO DAILY 04/30/25 [History] Furosemide 20 mg [Lasix 20 mg] 20 mg PO DAILY 04/30/25 [History] Pregabalin 75 mg PO BID 04/30/25 [History] Hx Tetanus, Diphtheria Vaccination/Date Given: Yes Hx Influenza Vaccination/Date Given: No Hx Pneumococcal Vaccination/Date Given: No Travel Risk - International Travel Have you traveled outside of the country in past 3 weeks: No - Emerging Infectious Disease Are you exhibiting symptoms associated with any current EIDs: No - Review of Systems All Other Systems: Reviewed and Negative - Past Medical History Pertinent Past Medical History: Yes Neurological History: Epilepsy ENT History: Other Cardiac History: Hypertension Respiratory History: Asthma Endocrine Medical History: No Pertinent History Musculoskeletal History: Osteoporosis GI Medical History: GERD History: No Pertinent History Psycho-Social History: No Pertinent History Female Reproductive Disorders: No Pertinent History Other Medical History: anemia, - Past Surgical History Past Surgical History: Yes Neuro Surgical History: No Pertinent History Cardiac: No Pertinent History Respiratory: No Pertinent History Gastrointestinal: No Pertinent History Genitourinary: No Pertinent History Musculoskeletal: No Pertinent History Female Surgical History: Hysterectomy Other Surgical History: cataracts, left shoulder and hand, cyst off of stomach,bone spur removed, left foot. left elbow - Social History Smoking Status: Never smoker Exposure to second hand smoke: No Drug Use: none - Social Determinants of Health Will the patient participate in the screening: Yes Do you worry about a steady place to live?: No Do you have any problems with any of the following?: No known problems In the past 12 months,have you had to go without utilities?: No Transportation Issues: No Has anyone in your support network made you feel unsafe?: No Have you or anyone in your house had to go w/o enough food: No - Nursing Vital Signs Nursing Vital Signs: Initial Vital Signs Pulse Rate 73 04/30/25 10:01 Respiratory Rate 19 04/30/25 10:01 Blood Pressure 149/72 04/30/25 10:01 O2 Sat by Pulse Oximetry 97 04/30/25 10:01 Pain Scale Pain Intensity 0 - Physical Exam General Appearance: no apparent distress, alert Eye Exam: PERRL/EOMI, eyes nml inspection Ears, Nose, Throat Exam: normal ENT inspection, pharynx normal, moist mucous membranes Neck Exam: normal inspection, full range of motion Respiratory Exam: normal breath sounds, lungs clear, airway intact, No respiratory distress Cardiovascular Exam: regular rate/rhythm, normal heart sounds, normal peripheral pulses Gastrointestinal/Abdomen Exam: soft, normal bowel sounds, No tenderness, No mass Back Exam: normal inspection, normal range of motion, No CVA tenderness, No vertebral tenderness Extremity Exam: normal inspection, normal range of motion, pelvis stable Neurologic Exam: alert, oriented x 3, cooperative, normal mood/affect, sensation nml, facial droop, other (Left-sided facial droop. Left upper and lower extremity weakness 4 out of 5. Right upper and lower extremity are both 5 out of 5. Patient has slight slurred speech. ), No motor deficits Skin Exam: normal color, warm, dry, No rash Lymphatic Exam: No adenopathy SpO2 Interpretation: normal SpO2: 97 O2 Delivery: Room Air - Course Nursing assessment & vital signs reviewed: Yes EKG Interpreted by Me: RATE (64), Sinus Rhythm, NORMAL AXIS, NORMAL INTERVALS, NORMAL QRS (T wave inversions) - CT Exams Head CT Interpretation: Tele-radiologist Report Soft Tissue Neck CT Interpretation: Tele-radiologist Report (1. Minimal arteriosclerotic calcification origins right internal/external) Ordered Tests: Active Orders 24 hr Category Date Time Status Wirer Street Light STAT Care 04/30/25 10:12 Active EKG-ER Only STAT Care 04/30/25 10:12 Completed Lara [Catheter-[place] Lara] STAT Care 04/30/25 11:39 Active IV Insertion STAT Care 04/30/25 10:12 Active Pulse Oximetry (ED) STAT Care 04/30/25 10:12 Active Consult Neurology ROUTINE Cons 04/30/25 10:[address] ANGIOGRAPHY NECK [CT] Stat Exams 04/30/25 10:11 Completed CTA HEAD W AND/OR WO CONTRAST [CT] Stat Exams 04/30/25 10:11 Completed HEAD WITHOUT CONTRAST [CT] Stat Exams 04/30/25 09:51 Completed CBC W DIFF Stat Lab 04/30/25 10:18 Completed CMP Stat Lab 04/30/25 10:18 Completed CULTURE,URINE Stat Lab 04/30/25 11:39 Received ETHYL ALCOHOL Stat Lab 04/30/25 10:18 Completed POCT GLUCOSE Stat Lab 04/30/25 10:15 Completed PROTIME WITH INR Stat Lab 04/30/25 09:50 Completed PTT Stat Lab 04/30/25 09:50 Completed TROPONIN Q4H Lab 04/30/25 10:18 Completed TROPONIN Q4H Lab 04/30/25 14:15 Ordered TROPONIN Q4H Lab 04/30/25 18:15 Ordered UA W/RFX UR CULTURE Stat Lab 04/30/25 11:39 Completed Transfer Order Routine Transfer 04/30/25 Ordered Medication Summary Generic Name Dose Route Start Last Admin Trade Name Freq PRN Reason Stop Dose Admin Sodium Chloride 1,000 mls @ 100 mls/hr 04/30/25 10:15 04/30/25 10:21 Sodium Chloride 0.9% 1000 Ml IV 05/30/25 10:14 100 mls/hr .Q10H PAZ Administration Levofloxacin/Dextrose 500 mg in 100 mls @ 100 mls/hr 04/30/25 12:58 04/30/25 13:19 Levofloxacin 500mg/100ml D5w IV 04/30/25 13:57 100 mls/hr STAT STA 100 mls/hr Administration Discontinued Medications Generic Name Dose Route Start Last Admin Trade Name Freq PRN Reason Stop Dose Admin Aspirin 324 mg 04/30/25 11:13 04/30/25 11:20 Aspirin 81 Mg Tab.Chew PO 04/30/25 11:14 324 mg STAT ONE Administration Aspirin Confirm 04/30/25 11:19 Aspirin 81 Mg Tab.Chew Administered 04/30/25 11:20 Dose 324 mg .ROUTE .STK-MED ONE Clopidogrel Bisulfate 300 mg 04/30/25 11:12 04/30/25 11:19 Clopidogrel Bisulfate 75 Mg Tablet PO 04/30/25 11:13 300 mg STAT ONE Administration Clopidogrel Bisulfate Confirm 04/30/25 11:19 Clopidogrel Bisulfate 75 Mg Tablet Administered 04/30/25 11:20 Dose 300 mg .ROUTE .STK-MED ONE Levofloxacin/Dextrose Confirm 04/30/25 13:19 Levofloxacin 500mg/100ml D5w Administered 04/30/25 13:20 Dose 500 mg in 100 mls @ ud IV .STK-MED ONE Lab/Rad Data: Laboratory Result Diagrams 04/30/25 10:18 04/30/25 10:18 Laboratory Results 04/30/25 04/30/25 04/30/25 Range/Units 11:39 10:18 10:18 WBC (3.98-10.04) x10^3/uL RBC (3.93-5.22) x10^6/uL Hgb (11.2-15.7) g/dL Hct (34.1-44.9) % MCV (79.4-94.8) fL MCH (25.6-32.2) pg MCHC (32.2-35.5) g/dL RDW (11.7-14.4) % Plt Count (182-369) x10^3/uL MPV (9.4-12.3) fL Gran % (34.0-71.1) % Immature Gran % (Auto) (0.001-0.429) % Nucleat RBC Rel Count (0.00-0.2) % Eos # (Auto) (0.04-0.36) x10^3/uL Immature Gran # (Auto) (0.001-0.031) x10^3u/L Absolute Lymphs (auto) (1.18-3.74) x10^3/uL Absolute Monos (auto) (0.24-0.86) x10^3/uL Absolute Nucleated RBC (0.00-0.012) x10^3u/L Lymphocytes % (19.3-51.7) % Monocytes % (4.7-12.5) % Eosinophils % (0.7-5.8) % Basophils % (0.1-1.2) % Absolute Granulocytes (1.56-6.13) x10^3/uL Basophils # (0.01-0.08) x10^3/uL PT (9.4-12.5) SECONDS INR (0.8-3.0) APTT (25.1-36.5) SECONDS Sodium 137 (135-145) mmol/L Potassium 3.8 (3.5-5.1) mmol/L Chloride 104 (98-107) mmol/L Carbon Dioxide 23 (22-30) mmol/L Anion Gap 13.6 (5-15) MEQ/L BUN 18 H (7-17) mg/dL Creatinine 0.74 (0.52-1.04) mg/dL Estimated GFR 83.8 ML/MIN Glucose 107 H (74-106) mg/dL POC Glucometer (74 to 106) mg/dL Calcium 8.9 (8.4-10.2) mg/dL Total Bilirubin 0.40 (0.2-1.3) mg/dL AST 27 (14-36) U/L ALT 14 (0-35) U/L Alkaline Phosphatase 151 H (38-126) U/L Troponin I < 0.012 (0.000-0.033) ng/mL Serum Total Protein 7.3 (6.3-8.2) g/dL Albumin 4.0 (3.5-5.0) g/dL Urine Color Yellow (Yellow) Urine Appearance Clear (Clear) Urine pH 6.0 (4.6-8.0) Ur Specific [place] 1.015 (1.005-1.030) Urine Protein Negative (Negative) Urine Glucose (UA) Negative (Negative) mg/dL Urine Ketones Negative (Negative) Urine Blood Negative (Negative) Urine Nitrite Negative (Negative) Urine Bilirubin Negative (Negative) Urine Urobilinogen 1.0 A (0.2) mg/dL Ur Leukocyte Esterase Small A (Negative) U Hyaline Cast (Auto) NONE SEEN (0-2) /LPF Urine Microscopic RBC 0-2 (0-5) /HPF Urine Microscopic WBC 6-10 A (0-5) /HPF Ur Epithelial Cells None Seen (None Seen) /HPF Urine Bacteria Many A (None Seen) /HPF Urine Culture Reflexed YES (NO) Phenytoin (10-20) ug/mL Ethyl Alcohol < 10 (0-10) mg/dL 04/30/25 04/30/25 04/30/25 Range/Units 10:18 10:15 09:50 WBC 6.8 (3.98-10.04) x10^3/uL RBC 4.34 (3.93-5.22) x10^6/uL Hgb 13.2 (11.2-15.7) g/dL Hct 40.4 (34.1-44.9) % MCV 93.1 (79.4-94.8) fL MCH 30.4 (25.6-32.2) pg MCHC 32.7 (32.2-35.5) g/dL RDW 14.2 (11.7-14.4) % Plt Count 304 (182-369) x10^3/uL MPV 9.9 (9.4-12.3) fL Gran % 64.0 (34.0-71.1) % Immature Gran % (Auto) 0.4 (0.001-0.429) % Nucleat RBC Rel Count 0.0 (0.00-0.2) % Eos # (Auto) 0.49 H (0.04-0.36) x10^3/uL Immature Gran # (Auto) 0.03 (0.001-0.031) x10^3u/L Absolute Lymphs (auto) 1.28 (1.18-3.74) x10^3/uL Absolute Monos (auto) 0.62 (0.24-0.86) x10^3/uL Absolute Nucleated RBC 0.00 (0.00-0.012) x10^3u/L Lymphocytes % 18.7 L (19.3-51.7) % Monocytes % 9.1 (4.7-12.5) % Eosinophils % 7.2 H (0.7-5.8) % Basophils % 0.6 (0.1-1.2) % Absolute Granulocytes 4.38 (1.56-6.13) x10^3/uL Basophils # 0.04 (0.01-0.08) x10^3/uL PT 10.3 (9.4-12.5) SECONDS INR 0.92 (0.8-3.0) APTT 25.9 (25.1-36.5) SECONDS Sodium (135-145) mmol/L Potassium (3.5-5.1) mmol/L Chloride (98-107) mmol/L Carbon Dioxide (22-30) mmol/L Anion Gap (5-15) MEQ/L BUN (7-17) mg/dL Creatinine (0.52-1.04) mg/dL Estimated GFR ML/MIN Glucose (74-106) mg/dL POC Glucometer 96 (74 to 106) mg/dL Calcium (8.4-10.2) mg/dL Total Bilirubin (0.2-1.3) mg/dL AST (14-36) U/L ALT (0-35) U/L Alkaline Phosphatase (38-126) U/L Troponin I (0.000-0.033) ng/mL Serum Total Protein (6.3-8.2) g/dL Albumin (3.5-5.0) g/dL Urine Color (Yellow) Urine Appearance (Clear) Urine pH (4.6-8.0) Ur Specific [place] (1.005-1.030) Urine Protein (Negative) Urine Glucose (UA) (Negative) mg/dL Urine Ketones (Negative) Urine Blood (Negative) Urine Nitrite (Negative) Urine Bilirubin (Negative) Urine Urobilinogen (0.2) mg/dL Ur Leukocyte Esterase (Negative) U Hyaline Cast (Auto) (0-2) /LPF Urine Microscopic RBC (0-5) /HPF Urine Microscopic WBC (0-5) /HPF Ur Epithelial Cells (None Seen) /HPF Urine Bacteria (None Seen) /HPF Urine Culture Reflexed (NO) Phenytoin (10-20) ug/mL Ethyl Alcohol (0-10) mg/dL 04/30/25 Range/Units 09:50 WBC (3.98-10.04) x10^3/uL RBC (3.93-5.22) x10^6/uL Hgb (11.2-15.7) g/dL Hct (34.1-44.9) % MCV (79.4-94.8) fL MCH (25.6-32.2) pg MCHC (32.2-35.5) g/dL RDW (11.7-14.4) % Plt Count (182-369) x10^3/uL MPV (9.4-12.3) fL Gran % (34.0-71.1) % Immature Gran % (Auto) (0.001-0.429) % Nucleat RBC Rel Count (0.00-0.2) % Eos # (Auto) (0.04-0.36) x10^3/uL Immature Gran # (Auto) (0.001-0.031) x10^3u/L Absolute Lymphs (auto) (1.18-3.74) x10^3/uL Absolute Monos (auto) (0.24-0.86) x10^3/uL Absolute Nucleated RBC (0.00-0.012) x10^3u/L Lymphocytes % (19.3-51.7) % Monocytes % (4.7-12.5) % Eosinophils % (0.7-5.8) % Basophils % (0.1-1.2) % Absolute Granulocytes (1.56-6.13) x10^3/uL Basophils # (0.01-0.08) x10^3/uL PT (9.4-12.5) SECONDS INR (0.8-3.0) APTT (25.1-36.5) SECONDS Sodium (135-145) mmol/L Potassium (3.5-5.1) mmol/L Chloride (98-107) mmol/L Carbon Dioxide (22-30) mmol/L Anion Gap (5-15) MEQ/L BUN (7-17) mg/dL Creatinine (0.52-1.04) mg/dL Estimated GFR ML/MIN Glucose (74-106) mg/dL POC Glucometer (74 to 106) mg/dL Calcium (8.4-10.2) mg/dL Total Bilirubin (0.2-1.3) mg/dL AST (14-36) U/L ALT (0-35) U/L Alkaline Phosphatase (38-126) U/L Troponin I (0.000-0.033) ng/mL Serum Total Protein (6.3-8.2) g/dL Albumin (3.5-5.0) g/dL Urine Color (Yellow) Urine Appearance (Clear) Urine pH (4.6-8.0) Ur Specific [place] (1.005-1.030) Urine Protein (Negative) Urine Glucose (UA) (Negative) mg/dL Urine Ketones (Negative) Urine Blood (Negative) Urine Nitrite (Negative) Urine Bilirubin (Negative) Urine Urobilinogen (0.2) mg/dL Ur Leukocyte Esterase (Negative) U Hyaline Cast (Auto) (0-2) /LPF Urine Microscopic RBC (0-5) /HPF Urine Microscopic WBC (0-5) /HPF Ur Epithelial Cells (None Seen) /HPF Urine Bacteria (None Seen) /HPF Urine Culture Reflexed (NO) Phenytoin 15.4 (10-20) ug/mL Ethyl Alcohol (0-10) mg/dL - Progress Progress: improved Progress Note: Case discussed with neurologist Dr. Nesbitt who feels patient had a stroke. However due to the timing patient is not a candidate for tenecteplase. It appears patient's stroke likely occurred at some point while she was asleep. However she advises a dose of Plavix 300 mg and a dose of aspirin 325 while in our ED. We will do a CTA head and neck. If those are both negative patient to be admitted for further workup including a echo with bubble, hemoglobin A1c and continuation of aspirin and Plavix. Please refer to patient's consultation note for further evaluation. 04/30/[address] head negative for acute intracranial process. Chronic findings, senile brain. CTA head negative for acute stenosis. CTA neck incidentally shows a left upper lobe airspace disease with effusion. Right lower lobe noncalcified nodule which will require follow-up/likely PET scan per radiologist recommendation. Patient is a 74-year-old female history of epilepsy hypertension asthma GERD presents to our ED for evaluation of strokelike symptoms. Patient states she woke at 6 AM this morning to have breakfast. Patient observed that she had a hard time holding her cup of coffee with her left hand. Patient went back to bed and awoke 9 hours later at 9 AM. At that time she observed difficulty with her left leg. She had difficulty standing. CT head, CTA head and neck essentially negative for acute pathology. However incidental right lower lobe noncalcified lung nodule that will require follow- up. Neurologist feels patient likely had a stroke but is out of the window for tenecteplase. No findings on CTA that would benefit from thrombectomy. Patient will require hospitalization or further evaluation and treatment. Laboratory workup shows a UA significant for UTI. CBC CMP otherwise negative. Plan of care discussed with patient and daughter at bedside. They agree to admission at [facility] for further evaluation and treatment. Portions of this note were created with voice recognition technology. There may be grammatical, spelling, punctuation or sound alike errors Complexity of problems addressed is moderate acute complicated. No critical care time. Complex of data reviewed and analyzed is extensive. Test ordered chest reviewed results analyzed and correlated clinically with history and physical exam. Management discussed with hospitalist and neurologist. Risk of complication at risk of morbidity/mortality of patient management is high. Patient requires hospitalization for further evaluation and treatment. Vital stable. Time spent admit patient approximately 20 minutes. Plan of care established for shared decision making. No social determinants of health present to impede follow-up. Portions of this note were created with voice recognition technology. There may be grammatical, spelling, punctuation or sound alike errors 04/30/25 12:51 Case discussed with hospitalist Dr. Cullen accepts admission to observation at 1:[address] Octavio Will see patient in: hospital (observation) Counseled pt/family regarding: lab results, diagnosis, rad results - Departure Departure Disposition: Observation Clinical Impression: Stroke, Left upper lobe airspace disease with ef, Urinary tract infection Condition: Stable Critical Care Time: No Referrals: EDMUNDO VARGAS NP [Primary Care Provider, [facility]] - Follow up/PCP as directed
--- NOTE | 2025-04-30 11:09 | PCM.CONS ---
History of Present Illness - Neuro Consultation ED Arrival Date & Time: 04/30/25 09:50 Providers: Attending Provider: ED Provider: Consulting Provider: NATALIE NESBITT MD cc:: The requesting physician will be sent a copy of the consult. - History of Present Illness HPI: Physician Signature This document was electronically signed by: Natalie Nesbitt MD 04/30/2025 11:08 AM Consult Cover Page ACCESS [facility]LEC[facility] - Teleneurology Consult Note Call Back Number: [phone] Date and Time of Report: 04/30/2025 11:08 AM ET Consult Information Client Facility: [facility] Facility Consult ID: [id number] Facility Time Zone: ET Date and Time of Request: 04-30-2025 10:18 AM ET Requesting Clinician: DR. LIU FARIAS Patient Name: benita matthews Date of : 1950 Teleneurology Cleaning Validation Consultant: Natalie Nesbitt MD Miscellaneous Patient identity was confirmed at the beginning of the consult with the patient/family/staff using two personal identifiers: Patient name and This visit was performed using real-time audio and video connection between my location and the patient's location with the assistance of a surrogate at the patient's location. Verbal consent was obtained from the patient/family to perform this visit using synchronous telemedicine technology. Any questions regarding the telemedicine interaction were answered. If written or oral consent could not be obtained due to the patient's condition, consent was assumed given the emergent nature of the consultation. I have obtained verbal consent from patient/surrogate for two-way audio/visual encounter: Yes Reason for Consult Reason for Consult: Code Stroke Assessment and Recommendations Case discussed with: Dr. Farias Assessment: Ms. Matthews is a 74 yo F w/pmhx of epilepsy, HTN, HLD who presents L sided weakness, numbness and dysarthria. LKW was yesterday at 830 PM. She was not a candidate for thrombolytics due to being outside the window. Recommendations: FU on final read of CTA H/N- if found to have LVO, would be a candidate for thrombectomy as she is still in the 24 our window and would need STAT transfer for evaluation Please alert teleneuro if any abnormalities found on CTA H/N. Recommend loading with plavix 300 mg x1 now and aspirin 325 mg x1 now. then start on plavix 75 mg daily and bASA daily starting tomorrow. Permissive HTN up to SBP of 220mmHg/110 for 24 hours then normalize (SBP < 140 and DBP <90) patient reports being unable to tolerate statins in the past and is currently on zetia due to that. Obtain lipid panel Check A1c (goal < 7%) PT/OT/DRAIN TILER Bedside dysphagia screen prior to oral intake MRI brain without contrast TTE w/bubble Telemetry monitoring Obtain PT/PTT/INR Obtain dilantin level verify home AED medications and resume them She will need OP neuro FU upon discharge Please call neurology to follow up on patient once testing complete Stroke risk factor modification, if relevant to patient, discussed including importance of smoking cessation, physical activity, nutrition, addressing sleep apnea, and importance of controlling blood pressure and blood glucose. Synchronous Audio-Visual Visit: Patient Consent Obtained?This visit was performed using real-time audio and video connection between my location and the patients location with the assistance of a surrogate at the patients location. Written or verbal consent was obtained from the patient/guardian to perform this visit using synchronous telemedicine technology. Any patient questions regarding the telemedicine interaction were answered. Diagnosis: stroke ICD-10 Code ICD-10 Code (Primary): I63.9 : Cerebral infarction, unspecified ICD-10 Code: G83.14 : Monoplegia of lower limb affecting left nondominant side ICD-10 Code: G83.24 : Monoplegia of upper limb affecting left nondominant side ICD-10 Code: R20.0 : Anesthesia of skin Clinical Evaluation Chief Complaint: stroke alert Patient Location and Admission Status: ED- Patient is not admitted Family Members and Medical Staff Present: RN History of Present Illness: Telestroke Note: Date patient last known well: 04/29/2025 Time patient last known well: 830 PM Neurologist evaluation date: 04/30/2025 Neurologist call time: 1021 Neurologist on-cart time: 1022 Neurologist evaluation with patient time: 1025 Ms. Matthews is a 74 yo F w/pmhx of epilepsy, HTN, HLD who presents with clumsiness of her LUE. She also reports weakness of her LLE. She notes that these sx were present upon awakening this AM. She reports a NARVAEZ that is located on the right side of her head and she reports that she frequently experiences migraine like this. She reports trouble seeing yesterday in both of her eyes and describes it as blurry vision. The kids reported that she is slurring her words. As for her epilepsy history, her usual seizure semiology is GTC and also has focal impaired awareness seizures where she has an odd smell that no one else can smell and then she loses awareness for a few minutes. She reports that she had an episode of odd smell but did not lose awareness. She follows with an outpatient neurologist but unable to view records in EMR. Medical History Other Medical History: as noted in HPI Past Procedures: None Social History Alcohol Use: None Illicit Drug Use: None Tobacco Use: None Family History Pertinent Family History: Not Relevant to Current Presentation Allergies Allergies: Penicillin, Sulfa Other Allergies: tramadol Medications Anti-Coagulants: None Anti-Platelets: None Other Medications: dilantin 300 mg qhs amlodipine losartan lyrica lasix zetia lexapro celebrex Vital Signs Temperature: Afebrile Blood Pressure (mmHg): 161/81 Heart Rate (bpm): 70 Respiration Rate (/min): 23 O2 Sat (%): 95 POC Glucose(mg/dL): 100 Date and Time: 04/30/2025 10:32:51 AM ET Review of Systems Review of Systems: Constitutional: Denies fevers, chills, weight loss ENT: Denies tinnitus Ophthalmology:+blurred vision Respiratory: Denies SOB, cough Cardiovascular: Denies chest pains, palpitations GI: Denies nausea, vomiting : Denies hematuria Hematology: Denies excessive bleeding Musculoskeletal: Denies back pain, neck pain, joint pain Neurology: +headache, +weakness Mental Health: Denies anxiety Dermatology: Denies rash NIH Stroke Scale NIH Stroke Scale Score: 5 1. Level of Consciousness: 0 : alert; keenly responsive. 1a. LOC Questions: 0 : Answers both questions correctly. 1b. LOC Commands: 0 : Performs both tasks correctly. 2. Best Gaze: 0 : Normal. 3. Visual: 0 : No visual loss. 4. Facial Palsy: 0 : Normal symmetrical movements. 5a. Motor Left Arm: 1 : Drift; limb holds 90 (or 45) degrees, but drifts down before full 10 seconds; does not hit bed or other support. 5b. Motor Right Arm : 0 : No drift; limb holds 90 (or 45) degrees for full 10 seconds. 6a. Motor Left Le : Some effort against gravity; leg falls to bed by 5 seconds, but has some effort against gravity. 6b. Motor Right Le : No drift; leg holds 30-degree position for full 5 seconds. 7. Limb Ataxia: 0 : Absent. 8. Sensory: 1 : Pgqu-mq-apvlgypq sensory loss; patient feels pinprick is less sharp or is dull on the affected side; or there is a loss of superficial pain with pinprick, but patient is aware of being touched. 9. Best Language: 0 : No aphasia; normal. 10. Dysarthria: 1 : Ehif-bt-hoeteiah dysarthria; patient slurs at least some words and, at worst, can be understood with some difficulty. 11. Extinction and inattention (formerly Neglect) : 0 : No abnormality. NIH Stroke Scale Entry Time: 04/30/2025 10:54:13 AM ET Exam Exam: Gen: Well developed, well nourished. No acute distress. MS: Awake and oriented x3. Alert. Fund of knowledge, memory, at baseline. moderate dysarthria. CV: Regular rate. No edema. acid tester: Pupils reactive and equal., EOMI. Visual renner are full. +blink. Unable to visualize fundi through telemedicine. Sensation intact. Face is symmetric. Hearing intact to voice. Tongue midline. Motor: LUE drift without hitting bed. LLE drift and hits the bed. no drift of R side. Sens: decreased on R side throughout , intact on R left side MSR: Unable to assess through telemedicine, no clonus noted. Mvmt: No tremors noted. FTN intact on R side. Gait: Deferred. Clinician assisting with exam: RN Labs and Imaging I reviewed labs: Yes I reviewed diagnostic reports such as radiological imaging, echocardiogram, and EEG reports: Yes I reviewed diagnostics such as radiological images and electroencephalograms: Yes Labs and Imaging Comments: CTH- no acute abnormalities CTA H/N- completed,pending final read normal CBC, CMP Inclusion Criteria Symptoms suggestive of ischemic stroke that are deemed disabling: Yes Able to initiate treatment within 4.5 hours of time last known well: No Age 18 years or older: Yes Exclusion Criteria Acute intracranial hemorrhage (ICH): No History of ICH other than history of cerebral microbleeds: No Unable to maintain BP <185/110 despite aggressive antihypertensive treatment: No Acute internal bleeding: No Severe head trauma within last 3 months: No Arterial puncture at non-compressible site within 7 days: No Infective endocarditis: No Gastrointestinal bleeding within last 21 days or structural GI malignancy: No Intracranial or spinal surgery within last 3 months: No Thrombocytopenia: platelet count <100 000/mm3: No INR > 1.7, PT > 15 or PTT > 40: No Low-Molecular Weight Heparin within preceding 24 hours: No Direct Thrombin Inhibitors or Factor Xa Inhibitors within preceding 48 hours: No Thrombolysis Recommendation Thrombolysis recommended?: No Reason Thrombolysis not recommended: Outside of window Attestation Interaction Mode: Video & Phone Time of Phone Call : 04-30-2025 11:00 AM ET Time of Video Call : 04-30-2025 10:22 AM ET [facility] Timer Summary Date and Time of Request: 04-30-2025 10:18 AM ET Review of Systems - Review of Systems Review of Systems (Narrative): Pertinent positive and negative findings as per HPI. All other systems negative. - Past Medical History Past Medical History: Yes Neurological History: Epilepsy ENT History: Other Cardiac History: Hypertension Respiratory History: Asthma Endocrine Medical History: No Pertinent History Musculoskelatal History: Osteoporosis GI Medical History: GERD History: No Pertinent History Pyscho-Social History: No Pertinent History Reproductive Disorders: No Pertinent History Comment: anemia, - Past Surgical History Past Surgical History: Yes Neuro Surgical History: No Pertinent History Cardiac History: No Pertinent History Respiratory Surgery: No Pertinent History GI Surgical History: No Pertinent History Genitourinary Surgical Hx: No Pertinent History Musculskeletal Surgical Hx: No Pertinent History Female Surgical History: Hysterectomy Other Surgical History: cataracts, left shoulder and hand, cyst off of stomach,bone spur removed, left foot. left elbow - Social History Smoking Status: Never smoker Exposure to second hand smoke: No Alcohol: None Drug Use: none - Social Determinants of Health Will the patient participate in the screening: Yes Do you worry about a steady place to live?: No Do you have any problems with any of the following?: No known problems In the past 12 months,have you had to go without utilities?: No Have you or anyone in your house had to go without enough: No Transportation Issues: No Has anyone in your support network made you feel unsafe?: No Physical Exam - Vital Signs Vital Signs: Vital Signs - 24 hr 04/30/25 04/30/25 04/30/25 10:01 10:03 10:18 Temperature 97.2 F Pulse Rate 73 71 Respiratory 19 19 Rate Blood Pressure 149/72 Blood Pressure 149/72 [Right Arm] O2 Sat by Pulse 97 94 L Oximetry 04/30/25 04/30/25 04/30/25 10:30 10:53 11:00 Temperature Pulse Rate 74 63 Respiratory 23 15 Rate Blood Pressure 161/81 173/91 Blood Pressure [Right Arm] O2 Sat by Pulse 97 97 97 Oximetry - NIHSS Stroke Scale Date Completed: 04/30/25 Time Stroke Scale Completed: 10:18 Results - Labs Lab/Micro Results: Lab Results-Last 24 Hours 04/30/25 04/30/25 04/30/25 Range/Units 09:50 10:15 10:18 WBC 6.8 (3.98-10.04) x10^3/uL RBC 4.34 (3.93-5.22) x10^6/uL Hgb 13.2 (11.2-15.7) g/dL Hct 40.4 (34.1-44.9) % MCV 93.1 (79.4-94.8) fL MCH 30.4 (25.6-32.2) pg MCHC 32.7 (32.2-35.5) g/dL RDW 14.2 (11.7-14.4) % Plt Count 304 (182-369) x10^3/uL MPV 9.9 (9.4-12.3) fL Gran % 64.0 (34.0-71.1) % Immature Gran % (Auto) 0.4 (0.001-0.429) % Nucleat RBC Rel Count 0.0 (0.00-0.2) % Eos # (Auto) 0.49 H (0.04-0.36) x10^3/uL Immature Gran # (Auto) 0.03 (0.001-0.031) x10^3u/L Absolute Lymphs (auto) 1.28 (1.18-3.74) x10^3/uL Absolute Monos (auto) 0.62 (0.24-0.86) x10^3/uL Absolute Nucleated RBC 0.00 (0.00-0.012) x10^3u/L Lymphocytes % 18.7 L (19.3-51.7) % Monocytes % 9.1 (4.7-12.5) % Eosinophils % 7.2 H (0.7-5.8) % Basophils % 0.6 (0.1-1.2) % Absolute Granulocytes 4.38 (1.56-6.13) x10^3/uL Basophils # 0.04 (0.01-0.08) x10^3/uL Sodium (135-145) mmol/L Potassium (3.5-5.1) mmol/L Chloride (98-107) mmol/L Carbon Dioxide (22-30) mmol/L Anion Gap (5-15) MEQ/L BUN (7-17) mg/dL Creatinine (0.52-1.04) mg/dL Estimated GFR ML/MIN Glucose (74-106) mg/dL POC Glucometer 96 (74 to 106) mg/dL Calcium (8.4-10.2) mg/dL Total Bilirubin (0.2-1.3) mg/dL AST (14-36) U/L ALT (0-35) U/L Alkaline Phosphatase (38-126) U/L Troponin I (0.000-0.033) ng/mL Serum Total Protein (6.3-8.2) g/dL Albumin (3.5-5.0) g/dL Phenytoin 15.4 (10-20) ug/mL Ethyl Alcohol (0-10) mg/dL 04/30/04/30/ Range/Units 10:18 10:18 WBC (3.98-10.04) x10^3/uL RBC (3.93-5.22) x10^6/uL Hgb (11.2-15.7) g/dL Hct (34.1-44.9) % MCV (79.4-94.8) fL MCH (25.6-32.2) pg MCHC (32.2-35.5) g/dL RDW (11.7-14.4) % Plt Count (182-369) x10^3/uL MPV (9.4-12.3) fL Gran % (34.0-71.1) % Immature Gran % (Auto) (0.001-0.429) % Nucleat RBC Rel Count (0.00-0.2) % Eos # (Auto) (0.04-0.36) x10^3/uL Immature Gran # (Auto) (0.001-0.031) x10^3u/L Absolute Lymphs (auto) (1.18-3.74) x10^3/uL Absolute Monos (auto) (0.24-0.86) x10^3/uL Absolute Nucleated RBC (0.00-0.012) x10^3u/L Lymphocytes % (19.3-51.7) % Monocytes % (4.7-12.5) % Eosinophils % (0.7-5.8) % Basophils % (0.1-1.2) % Absolute Granulocytes (1.56-6.13) x10^3/uL Basophils # (0.01-0.08) x10^3/uL Sodium 137 (135-145) mmol/L Potassium 3.8 (3.5-5.1) mmol/L Chloride 104 (98-107) mmol/L Carbon Dioxide 23 (22-30) mmol/L Anion Gap 13.6 (5-15) MEQ/L BUN 18 H (7-17) mg/dL Creatinine 0.74 (0.52-1.04) mg/dL Estimated GFR 83.8 ML/MIN Glucose 107 H (74-106) mg/dL POC Glucometer (74 to 106) mg/dL Calcium 8.9 (8.4-10.2) mg/dL Total Bilirubin 0.40 (0.2-1.3) mg/dL AST 27 (14-36) U/L ALT 14 (0-35) U/L Alkaline Phosphatase 151 H (38-126) U/L Troponin I < 0.012 (0.000-0.033) ng/mL Serum Total Protein 7.3 (6.3-8.2) g/dL Albumin 4.0 (3.5-5.0) g/dL Phenytoin (10-20) ug/mL Ethyl Alcohol < 10 (0-10) mg/dL - Radiology Orders Radiology Orders: Radiology Procedures Category Date Time Status CT ANGIOGRAPHY NECK [CT] Stat Exams 04/30/25 10:11 Ordered CTA HEAD W AND/OR WO CONTRAST [CT] Stat Exams 04/30/25 10:11 Ordered HEAD WITHOUT CONTRAST [CT] Stat Exams 04/30/25 09:51 Completed Impressions & Recommendations - ED Arrival Time ED Arrival Date & Time: ED Arrival Date and Time 04/30/25 09:50 Last known well time: - NIHSS IV Thrombolysis Standard of Care: IV thrombolysis as a standard of care in acute stroke discussed with . Risk, benefits, and options of IV thrombolytic therapy for acute ischemic stroke were discussed with the patient/family BENITA MATTHEWS. We discussed that use of IV tenecteplase is in line with national stroke guidelines. We discussed that risks of IV thrombolytic use include intracranial hemorrhage, other fatal bleeding risks, and angioedema. Alternatives of treatment, including not proceeding with thrombolytic therapy were discussed. - Recommendations Recommendations: -Neuro checks, NIHSS, vital signs monitoring as per post tenecteplase protocol -Repeat non contrast head CT or noncontrast MRI brain 24 hours after IV thrombolyltic administration. -Obtain STAT non contrast head CT if there are new neurological deficits, worsening of current deficits, or with complaint of severe headache. Notify Neurology [place] of changes in neurological exam. -Nicardipine gtt as needed to maintain BP< 180/105 x 24hr post tenecteplase administration. -Monitor for angioedema -SCD's for DVT prophylaxis. Work up: -Basic labs (CBC, BMP, TSH+T4) if not done already. -INR,PTT if not done already -Fasting Lipid Panel and Hgb A1c -Transthroacic echocardiogram [with bubble study] -EKG + Telemetry- monitor for A-FIB Secondary Stroke Prevention -Hold off on antiplatelet therapy x 24 hr post IV thrombolytic therapy Decision to initiate antiplatelet therapy, or anticoagulation if needed, will be based on repeat imaging at 24 hour post thrombolytic administration. -If not medical contraindication, start high intensity statin. Eg. Atrovastatin 80 mg daily Risk Factor Management -HTN control: BP <180/105 for first 24 hr post tenecteplase -If diabetic, optimize glucose control: senior care goal HgA1c <7 -HLD control: Long-term goal LDL <70. High intensity statin recommended. Moderate intensity statin in patients > 75 years. -Smoking Alcohol Use Drug use cessation counseling Stroke Rehabilitation: -Physical therapy, occupational therapy, speech therapy consults -Social work and case management consults for help with discharge needs. Impression and recommendation were discussed with . Thank you for allowing us to participate in this patient's care. Please call [facility] with questions, concerns, or change in patient's neurological status. This consult was performed via secure telemedicine audio/visual platform with [ ] RN assisting at bedside. Patient identity verified and consent obtained. TIQ recieved at [ ] Neuro Cart Time: Delays in Patient Encounter: Assessment & Plan - Encounter Encounter: "The entirety of this encounter was performed via Telemedicine using audio and visual "
[2025-04-30] MEDS: PLAVIX Tablet PO ONE (11:19)
[2025-04-30] MEDS ORDERED: BABY ASPIRIN 81 MG CHEW ONE (11:19)
[2025-04-30] MEDS ORDERED: PLAVIX Tablet ONE (11:19)
[2025-04-30] MEDS: BABY ASPIRIN 81 MG CHEW PO ONE (11:20)
[2025-04-30 11:30] LABS: INR 0.92 (0.8-3.0); PROTIME 10.3 SECONDS (9.4-12.5); PTT 25.9 SECONDS (25.1-36.5)
[2025-04-30 11:53] LABS: Glucose, Urine Negative (Negative); Protein,Urine Dip Negative (Negative); RBC 0-2 /HPF (0-5)
--- NOTE | 2025-04-30 12:11 | XRAY ---
Indication: Weakness. Stroke. Conventional contrast-enhanced CTA neck performed using 80 cc Isovue 370 contrast. 2D sagittal and coronal reformatted images obtained. Additional 3D reformatted images obtained using separate workstation. Comparison: None Visualized aortic arch very minimally arteriosclerotic without aneurysm/dissection. Patent branching right brachiocephalic, left common carotid, and left subclavian arteries with very minimal calcifications origin left common carotid artery. Right carotid circulation demonstrates normal CTA appearance to common carotid and carotid bulb. Very minimal punctate calcification origins internal carotid and external carotid arteries. Left carotid circulation demonstrates normal CTA appearance to common carotid artery. Carotid bulb demonstrates mild eccentric calcification without critical stenosis/obstruction. Normal CTA appearance to the remaining internal carotid and external carotid arteries. Left and right vertebral arteries are normal in CTA appearance. Visualized soft tissues demonstrates a few subcentimeter cervical/submandibular nodes bilaterally, none pathologically enlarged. Thyroid gland enhances homogeneously. Supra and infraglottic airway widely patent. Osseous structures intact with osteopenia and minimal/mild multilevel cervical degenerative spondylosis greatest C5-C6. Lung apices demonstrates bilateral dependent atelectasis. Incompletely visualized patchy posterior left upper/superior segment left lower lobe airspace disease with incompletely visualized small effusion. Also 1.3 x 0.9 cm irregular perifissural noncalcified nodule superior segment right lower lobe. Impression: 1. Minimal arteriosclerotic calcification origins right internal/external carotid arteries and mild calcification left carotid bulb. Remaining CTA neck with contrast normal. 2. Incompletely visualized patchy left upper/left lower lobe airspace disease with effusion. Correlate clinically. 3. Indeterminate right lower lobe irregular perifissural noncalcified nodule. PET-CT may yield further information. 4. Incidental osteopenia and multilevel cervical degenerative spondylosis.
--- NOTE | 2025-04-30 12:23 | XRAY ---
Indication: Weakness. Stroke. Conventional contrast-enhanced CTA head performed using 80 cc Isovue 370 contrast. 2D sagittal and coronal reformatted images obtained. Additional 3D reformatted images obtained using separate workstation. Comparison: None Distal internal carotid arteries are bilaterally symmetric with very minimal calcifications in both parasellar segments without critical stenosis, obstruction, or AV malformation. Normal carotid terminus with normal branching A1 and M1 segments bilaterally. More distal anterior cerebral and middle cerebral arteries are normal in CTA appearance bilaterally. Posterior circulation demonstrates minimal calcifications distal right vertebral artery and lesser degree distal left vertebral artery without critical stenosis or obstruction. Normal CTA appearance to the remaining basilar, left/right posterior cerebral, left/right superior cerebellar, and left/right anterior inferior cerebellar arteries. Venous sinuses/drainage unremarkable. Brain parenchyma is negative for abnormal intra or extra-axial enhancement. Impression: Very minimal calcifications in both parasellar internal carotid and both distal vertebral arteries without critical stenosis/obstruction. Remaining CTA head with contrast is negative.
[2025-04-30] MEDS ORDERED: Levofloxacin 500MG/100ML D5W 500 MG/100 ML BAG IV ONE (13:19)
[2025-04-30] MEDS: Levofloxacin 500MG/100ML D5W 500 MG/100 ML BAG IV STA (13:19)
--- NOTE | 2025-04-30 14:19 | PCM.HP ---
History of Present Illness - Chief Complaint Chief Complaint: Stroke, urinary tract infection, Date: 04/30/25 History of Present Illness: is a 74 year old female with a pmhx of epilepsy, hypertension, asthma, osteoporosis, and GERD who presented to the emergency department on 04/30/25 for evaluation of acute neurologic deficits. She reports waking around 6:00 a.m. and noticing difficulty using her left hand while trying to hold her coffee cup, stating that her hand wouldnt work right. She returned to bed, hoping the symptoms would resolve. At approximately 9:00 a.m., when attempting to get out of bed, she noted new left leg weakness and an inability to stand or bear weight. She also describes dizziness, a mild headache, slurred speech, and brief episodes of blurry vision earlier in the morning. The patient further reports a pattern of recent falls at home, though she denies preceding chest pain, palpitations, or seizure activity. On arrival to the ED, vital signs were stable aside from hypertension with blood pressure 173/91. Labs were notable for BUN 18 and alkaline phosphatase 151; electrolytes and glucose were otherwise within normal limits. UA showed small leukocyte esterase, WBCs on microscopy, and many bacteria, suggesting possible early urinary infection. CT head without contrast revealed no acute intracranial pathology and only age-related cerebral atrophy with incidental paranasal sinus disease. CTA neck demonstrated minimal atherosclerotic calcifications at the origins of the right internal and external carotid arteries and mild calcification of the left carotid bulb, with no hemodynamically significant stenosis. Incidentally, patchy airspace disease was noted in the left upper and left lower lobes with a small effusion, as well as an indeterminate irregular non-calcified right lower-lobe perifissural nodule, along with osteopenia and multilevel cervical spondylosis. CTA head revealed very minimal calcifications of the parasellar internal carotids and distal vertebral arteries without stenosis or obstruction; the remainder of the study was unremarkable. Neurology evaluated the patient emergently and recommended a loading dose of clopidogrel 300 mg and aspirin 325 mg in the ED, followed by initiation of dual antiplatelet therapy with clopidogrel 75 mg daily and aspirin 81 mg beginning tomorrow. They advised permissive hypertension with systolic BP up to 220 mmHg for the first 24 hours. The patient reports prior intolerance to statins and currently takes ezetimibe. A lipid panel and HbA1c were ordered. MRI brain without contrast is planned for further evaluation. Echocardiogram will be obtained, though ZEN with bubble study is not available at this facility. She was placed on telemetry and additional labs including PT/PTT/INR and a dilantin level were sent. Speech therapy will perform bedside dysphagia screening prior to any oral intake. She received aspirin 325 mg, clopidogrel loading dose, IV fluids, and a dose of levofloxacin in the ED due to the airspace disease and possible UTI. - Review of Systems Constitutional: Weakness Eyes: Vision Changes Ears, Nose, & Throat: No Symptoms Respiratory: No Symptoms Cardiac: No Symptoms Abdominal/Gastrointestinal: No Symptoms Genitourinary Symptoms: No Symptoms Musculoskeletal: No Symptoms Skin: No Symptoms Neurological: Dizziness, Focal Weakness (JENI/LLE), Headache, Speech Changes Psychological: No Symptoms Endocrine: No Symptoms Hematologic/Lymphatic: No Symptoms Immunological/Allergic: No Symptoms Medications & Allergies Home Medications: Home Medication List Escitalopram Oxalate [Lexapro] 20 mg PO DAILY 09/26/12 [History Confirmed 1 06/30/24] Montelukast Sodium 10 mg [Singulair 10 MG] 10 mg PO DAILY 09/26/12 [History Confirmed 04/30/25] Phenytoin Sodium Extended [Dilantin] 300 mg PO HS 09/26/12 [History Confirmed 04/30/25] Amlodipine Besylate [Norvasc] 10 mg PO HS 02/11/15 [History Confirmed 04/30/25] Losartan Potassium 100 mg PO DAILY 02/11/15 [History Confirmed 04/30/25] Potassium Chloride Tab* [Klor Con] 10 meq PO BID 07/01/16 [History Confirmed 04/30/25] PANTOPRAZOLE 40 mg Tablet [Protonix 40MG Tablet] 40 mg PO BID 06/07/18 [History Confirmed 04/30/25] ALPRAZolam [Alprazolam] 2 mg PO BID 09/14/21 [History Confirmed 04/30/25] Celecoxib 100 mg [celeBREX 100 MG] 100 mg PO BID 05/18/24 [History Confirmed 04/30/25] Cyanocobalamin 1000 Mcg/ml [Cyanocobalamin B-12 1000 MCG/ML] 1,000 mcg SQ .MONTHLY 04/30/25 [History Confirmed 04/30/25] Doxazosin Mesylate 2 mg PO DAILY 04/30/25 [History Confirmed 04/30/25] Ergocalciferol (Vitamin D2) [Vitamin D2] 1,250 mcg PO WEEKLY 04/30/25 [History Confirmed 04/30/25] Ezetimibe 10 mg [Zetia 10 MG] 10 mg PO DAILY 04/30/25 [History Confirmed 04/30/25] Furosemide 20 mg [Lasix 20 mg] 20 mg PO DAILY 04/30/25 [History Confirmed 04/30/25] Prednisone 10 mg [Deltasone 10 mg] 10 mg PO DAILY PRN PRN 04/30/25 [History Confirmed 04/30/25] Pregabalin 75 mg PO BID 04/30/25 [History Confirmed 04/30/25] Allergies/Adverse Reactions: Allergies Allergy/AdvReac Type Severity Reaction Status Date / Time Penicillins Allergy Mild Hives Verified 04/30/25 14:27 Sulfa (Sulfonamide Allergy Mild Hives Verified 04/30/25 14:27 Antibiotics) [Sulfa(Sulfonamide Antibiotics)] tramadol [From Ultram] AdvReac Verified 04/30/25 14:27 - Past Medical History Past Medical History: Yes Neurological History: Epilepsy ENT History: Other Cardiac History: Hypertension Respiratory History: Asthma Endocrine Medical History: No Pertinent History Musculoskelatal History: Osteoporosis GI Medical History: GERD History: No Pertinent History Pyscho-Social History: No Pertinent History Reproductive Disorders: No Pertinent History Comment: anemia, - Past Surgical History Past Surgical History: Yes Neuro Surgical History: No Pertinent History Cardiac History: No Pertinent History Respiratory Surgery: No Pertinent History GI Surgical History: No Pertinent History Genitourinary Surgical Hx: No Pertinent History Musculskeletal Surgical Hx: No Pertinent History Female Surgical History: Hysterectomy Other Surgical History: cataracts, left shoulder and hand, cyst off of stomach,bone spur removed, left foot. left elbow Significant Family History: heart disease, diabetes, hypertension - Social History Smoking Status: Never smoker Exposure to second hand smoke: No Alcohol: None Drug Use: none - Social Determinants of Health Will the patient participate in the screening: Yes Do you worry about a steady place to live?: No Do you have any problems with any of the following?: No known problems In the past 12 months,have you had to go without utilities?: No Have you or anyone in your house had to go without enough: No Transportation Issues: No Has anyone in your support network made you feel unsafe?: No - Physical Exam Vital Signs: Vital Signs - 24 hr Temp Pulse Resp BP BP Pulse Ox 04/30/25 13:26 97 04/30/25 13:00 60 19 185/84 95 04/30/25 12:30 59 L 18 160/86 97 04/30/25 12:08 60 15 169/80 96 04/30/25 11:00 63 15 173/91 97 04/30/25 10:30 74 23 161/81 97 04/30/25 10:18 94 L 04/30/25 10:03 97.2 F 71 19 149/72 04/30/25 10:01 73 19 149/72 97 General Appearance: no apparent distress Neurologic Exam: alert, oriented x 3, cooperative, motor deficits, other (dysarthia) Eye Exam: PERRL/EOMI Neck Exam: normal inspection Respiratory Exam: normal breath sounds, lungs clear Cardiovascular Exam: regular rate/rhythm, normal heart sounds Pelvic Exam: not done Rectal Exam: deferred Back Exam: normal inspection Extremity Exam: normal inspection Skin Exam: pale Results - Labs Lab/Micro Results: Lab Results-Last 24 Hours 04/30/25 04/30/25 04/30/25 Range/Units 09:50 09:50 10:15 WBC (3.98-10.04) x10^3/uL RBC (3.93-5.22) x10^6/uL Hgb (11.2-15.7) g/dL Hct (34.1-44.9) % MCV (79.4-94.8) fL MCH (25.6-32.2) pg MCHC (32.2-35.5) g/dL RDW (11.7-14.4) % Plt Count (182-369) x10^3/uL MPV (9.4-12.3) fL Gran % (34.0-71.1) % Immature Gran % (Auto) (0.001-0.429) % Nucleat RBC Rel Count (0.00-0.2) % Eos # (Auto) (0.04-0.36) x10^3/uL Immature Gran # (Auto) (0.001-0.031) x10^3u/L Absolute Lymphs (auto) (1.18-3.74) x10^3/uL Absolute Monos (auto) (0.24-0.86) x10^3/uL Absolute Nucleated RBC (0.00-0.012) x10^3u/L Lymphocytes % (19.3-51.7) % Monocytes % (4.7-12.5) % Eosinophils % (0.7-5.8) % Basophils % (0.1-1.2) % Absolute Granulocytes (1.56-6.13) x10^3/uL Basophils # (0.01-0.08) x10^3/uL PT 10.3 (9.4-12.5) SECONDS INR 0.92 (0.8-3.0) APTT 25.9 (25.1-36.5) SECONDS Sodium (135-145) mmol/L Potassium (3.5-5.1) mmol/L Chloride (98-107) mmol/L Carbon Dioxide (22-30) mmol/L Anion Gap (5-15) MEQ/L BUN (7-17) mg/dL Creatinine (0.52-1.04) mg/dL Estimated GFR ML/MIN Glucose (74-106) mg/dL POC Glucometer 96 (74 to 106) mg/dL Calcium (8.4-10.2) mg/dL Total Bilirubin (0.2-1.3) mg/dL AST (14-36) U/L ALT (0-35) U/L Alkaline Phosphatase (38-126) U/L Troponin I (0.000-0.033) ng/mL Serum Total Protein (6.3-8.2) g/dL Albumin (3.5-5.0) g/dL Urine Color (Yellow) Urine Appearance (Clear) Urine pH (4.6-8.0) Ur Specific [place] (1.005-1.030) Urine Protein (Negative) Urine Glucose (UA) (Negative) mg/dL Urine Ketones (Negative) Urine Blood (Negative) Urine Nitrite (Negative) Urine Bilirubin (Negative) Urine Urobilinogen (0.2) mg/dL Ur Leukocyte Esterase (Negative) U Hyaline Cast (Auto) (0-2) /LPF Urine Microscopic RBC (0-5) /HPF Urine Microscopic WBC (0-5) /HPF Ur Epithelial Cells (None Seen) /HPF Urine Bacteria (None Seen) /HPF Urine Culture Reflexed (NO) Phenytoin 15.4 (10-20) ug/mL Ethyl Alcohol (0-10) mg/dL 04/30/25 04/30/25 04/30/25 Range/Units 10:18 10:18 10:18 WBC 6.8 (3.98-10.04) x10^3/uL RBC 4.34 (3.93-5.22) x10^6/uL Hgb 13.2 (11.2-15.7) g/dL Hct 40.4 (34.1-44.9) % MCV 93.1 (79.4-94.8) fL MCH 30.4 (25.6-32.2) pg MCHC 32.7 (32.2-35.5) g/dL RDW 14.2 (11.7-14.4) % Plt Count 304 (182-369) x10^3/uL MPV 9.9 (9.4-12.3) fL Gran % 64.0 (34.0-71.1) % Immature Gran % (Auto) 0.4 (0.001-0.429) % Nucleat RBC Rel Count 0.0 (0.00-0.2) % Eos # (Auto) 0.49 H (0.04-0.36) x10^3/uL Immature Gran # (Auto) 0.03 (0.001-0.031) x10^3u/L Absolute Lymphs (auto) 1.28 (1.18-3.74) x10^3/uL Absolute Monos (auto) 0.62 (0.24-0.86) x10^3/uL Absolute Nucleated RBC 0.00 (0.00-0.012) x10^3u/L Lymphocytes % 18.7 L (19.3-51.7) % Monocytes % 9.1 (4.7-12.5) % Eosinophils % 7.2 H (0.7-5.8) % Basophils % 0.6 (0.1-1.2) % Absolute Granulocytes 4.38 (1.56-6.13) x10^3/uL Basophils # 0.04 (0.01-0.08) x10^3/uL PT (9.4-12.5) SECONDS INR (0.8-3.0) APTT (25.1-36.5) SECONDS Sodium 137 (135-145) mmol/L Potassium 3.8 (3.5-5.1) mmol/L Chloride 104 (98-107) mmol/L Carbon Dioxide 23 (22-30) mmol/L Anion Gap 13.6 (5-15) MEQ/L BUN 18 H (7-17) mg/dL Creatinine 0.74 (0.52-1.04) mg/dL Estimated GFR 83.8 ML/MIN Glucose 107 H (74-106) mg/dL POC Glucometer (74 to 106) mg/dL Calcium 8.9 (8.4-10.2) mg/dL Total Bilirubin 0.40 (0.2-1.3) mg/dL AST 27 (14-36) U/L ALT 14 (0-35) U/L Alkaline Phosphatase 151 H (38-126) U/L Troponin I < 0.012 (0.000-0.033) ng/mL Serum Total Protein 7.3 (6.3-8.2) g/dL Albumin 4.0 (3.5-5.0) g/dL Urine Color (Yellow) Urine Appearance (Clear) Urine pH (4.6-8.0) Ur Specific [place] (1.005-1.030) Urine Protein (Negative) Urine Glucose (UA) (Negative) mg/dL Urine Ketones (Negative) Urine Blood (Negative) Urine Nitrite (Negative) Urine Bilirubin (Negative) Urine Urobilinogen (0.2) mg/dL Ur Leukocyte Esterase (Negative) U Hyaline Cast (Auto) (0-2) /LPF Urine Microscopic RBC (0-5) /HPF Urine Microscopic WBC (0-5) /HPF Ur Epithelial Cells (None Seen) /HPF Urine Bacteria (None Seen) /HPF Urine Culture Reflexed (NO) Phenytoin (10-20) ug/mL Ethyl Alcohol < 10 (0-10) mg/dL 04/30/25 Range/Units 11:39 WBC (3.98-10.04) x10^3/uL RBC (3.93-5.22) x10^6/uL Hgb (11.2-15.7) g/dL Hct (34.1-44.9) % MCV (79.4-94.8) fL MCH (25.6-32.2) pg MCHC (32.2-35.5) g/dL RDW (11.7-14.4) % Plt Count (182-369) x10^3/uL MPV (9.4-12.3) fL Gran % (34.0-71.1) % Immature Gran % (Auto) (0.001-0.429) % Nucleat RBC Rel Count (0.00-0.2) % Eos # (Auto) (0.04-0.36) x10^3/uL Immature Gran # (Auto) (0.001-0.031) x10^3u/L Absolute Lymphs (auto) (1.18-3.74) x10^3/uL Absolute Monos (auto) (0.24-0.86) x10^3/uL Absolute Nucleated RBC (0.00-0.012) x10^3u/L Lymphocytes % (19.3-51.7) % Monocytes % (4.7-12.5) % Eosinophils % (0.7-5.8) % Basophils % (0.1-1.2) % Absolute Granulocytes (1.56-6.13) x10^3/uL Basophils # (0.01-0.08) x10^3/uL PT (9.4-12.5) SECONDS INR (0.8-3.0) APTT (25.1-36.5) SECONDS Sodium (135-145) mmol/L Potassium (3.5-5.1) mmol/L Chloride (98-107) mmol/L Carbon Dioxide (22-30) mmol/L Anion Gap (5-15) MEQ/L BUN (7-17) mg/dL Creatinine (0.52-1.04) mg/dL Estimated GFR ML/MIN Glucose (74-106) mg/dL POC Glucometer (74 to 106) mg/dL Calcium (8.4-10.2) mg/dL Total Bilirubin (0.2-1.3) mg/dL AST (14-36) U/L ALT (0-35) U/L Alkaline Phosphatase (38-126) U/L Troponin I (0.000-0.033) ng/mL Serum Total Protein (6.3-8.2) g/dL Albumin (3.5-5.0) g/dL Urine Color Yellow (Yellow) Urine Appearance Clear (Clear) Urine pH 6.0 (4.6-8.0) Ur Specific [place] 1.015 (1.005-1.030) Urine Protein Negative (Negative) Urine Glucose (UA) Negative (Negative) mg/dL Urine Ketones Negative (Negative) Urine Blood Negative (Negative) Urine Nitrite Negative (Negative) Urine Bilirubin Negative (Negative) Urine Urobilinogen 1.0 A (0.2) mg/dL Ur Leukocyte Esterase Small A (Negative) U Hyaline Cast (Auto) NONE SEEN (0-2) /LPF Urine Microscopic RBC 0-2 (0-5) /HPF Urine Microscopic WBC 6-10 A (0-5) /HPF Ur Epithelial Cells None Seen (None Seen) /HPF Urine Bacteria Many A (None Seen) /HPF Urine Culture Reflexed YES (NO) Phenytoin (10-20) ug/mL Ethyl Alcohol (0-10) mg/dL - Radiology Impressions Radiology Exams & Impressions: Radiology Procedures Category Date Time Status CT ANGIOGRAPHY NECK [CT] Stat Exams 04/30/25 10:11 Completed CTA HEAD W AND/OR WO CONTRAST [CT] Stat Exams 04/30/25 10:11 Completed HEAD WITHOUT CONTRAST [CT] Stat Exams 04/30/25 09:51 Completed Assessment/Plan (1) Cerebral infarction, unspecified Current Visit: Yes Status: Acute Assessment & Plan: -CT/CTA head and neck without acute occlusion; MRI pending -Neurology note reviewed and agree with plan -CMP/CBC reviewed -Dual antiplatelet therapy per neurology: aspirin 325 mg + clopidogrel 300 mg load, then aspirin 81 mg + clopidogrel 75 mg daily starting tomorrow -Permissive hypertension up to SBP 220 for 24 hours. -Tele -Dysphagia screen prior to PO intake; THORACIC MEDICINE PHYSICIAN consult. -Lipid panel, HbA1c, PT/PTT/INR, antiepileptic level. -Echocardiogram ordered; ZEN with bubble study unavailable at this facility. Code(s): I63.9 - CEREBRAL INFARCTION, UNSPECIFIED (2) Other nonspecific abnormal finding of lung field Current Visit: Yes Status: Acute Assessment & Plan: -CTA shows patchy opacities involving JUDI and LLL with a small reactive pleural effusion;Appearance most consistent with infectious or inflammatory etiology. -CXR ordered for serial comparison. -Right Lower Lobe Perifissural Pulmonary Nodule (Indeterminate); Irregular non- calcified perifissural nodule noted; size not reported in CTA;No acute malignant features or airway obstruction identified;Radiology addendum requested for size clarification. -Plan outpatient CT chest for interval surveillance -Left Pleural Effusion (Small);Small reactive effusion adjacent to LLL opacities;No signs of empyema or large fluid accumulation requiring intervention. -Levaquin started in ED due to allergy profile will continue Code(s): R91.8 - OTHER NONSPECIFIC ABNORMAL FINDING OF LUNG FIELD (3) Epilepsy Current Visit: Yes Status: Acute Assessment & Plan: -Dilantin level per neuro recs -continue home meds -seizure precautions Code(s): G40.909 - EPILEPSY, UNSP, NOT INTRACTABLE, WITHOUT STATUS EPILEPTICUS (4) HTN (hypertension) Current Visit: Yes Status: Acute Assessment & Plan: -Temporarily allow permissive hypertension SBP up to 220 -Resume chronic antihypertensives after 24-hour stroke window Code(s): I10 - ESSENTIAL (PRIMARY) HYPERTENSION (5) Asthma Current Visit: Yes Status: Acute Assessment & Plan: -Continue home inhalers as ordered -RT to follow Code(s): J45.909 - UNSPECIFIED ASTHMA, UNCOMPLICATED (6) Osteoporosis Current Visit: Yes Status: Acute Assessment & Plan: -Noted incidental osteopenia on imaging. -Continue chronic management; ensure fall precautions. Code(s): M81.0 - AGE-RELATED OSTEOPOROSIS W/O CURRENT PATHOLOGICAL FRACTURE (7) GERD (gastroesophageal reflux disease) Current Visit: Yes Status: Acute Assessment & Plan: -continue home meds Code(s): K21.9 - GASTRO-ESOPHAGEAL REFLUX DISEASE WITHOUT ESOPHAGITIS (8) HLD (hyperlipidemia) Current Visit: Yes Status: Acute Assessment & Plan: -On ezetimibe; lipid panel pending. -Consider alternative non-statin therapy depending on results Code(s): E78.5 - HYPERLIPIDEMIA, UNSPECIFIED (9) Urinary tract infection Current Visit: Yes Status: Acute Assessment & Plan: -UA suspicious for UTI, levaquin initiated, will continue VTE: SCD/ASA/Plavix for now PPI: Protonix Dispo: 1-2 days Code status: SCO Plan of Care time spent > 40 mins Code(s): N39.0 - URINARY TRACT INFECTION, SITE NOT SPECIFIED Telemedicine Encounter - Telemedicine Encounter Telemedicine Encounter: "The entirety of this encounter was performed via Telemedicine" This visit was performed using real-time audio and video connection between my location and thepatients locationwith the assistance of a surrogateat the patients location. Written or verbal consent was obtained from the patient/guardian to perform this visit [facility]. Any patient questions regarding the telemedicine interaction were answered.
[2025-04-30] MEDS ORDERED: DUONEB 0.5-3 MG/3 ml Neb IH PRN (15:00)
[2025-04-30 15:53] LABS: INR 0.95 (0.8-3.0); PROTIME 10.7 SECONDS (9.4-12.5); PTT 25.6 SECONDS (25.1-36.5)
--- NOTE | 2025-04-30 16:30 | XRAY ---
Indication: Abnormal imaging. Comparison: July 01, 2016 Portable chest again hyperinflated with new small focus left costophrenic angle and minimal left upper lobe infiltrates/atelectasis. Remaining lungs clear. Heart not enlarged. Bony thorax intact again with osteopenia, degenerative changes, and distal left clavicle resection.
[2025-04-30] MEDS: VITAMIN D2 PO SCH (17:13)
[2025-04-30] MEDS ORDERED: APRESOLINE 20 MG/ML INJ IV PRN (19:05)
[2025-04-30] MEDS: Protonix 40MG Tablet PO SCH (21:01)
[2025-04-30] MEDS: LYRICA 75 MG CAP PO SCH (21:01)
[2025-04-30] MEDS: Dilantin 100 MG PO SCH (21:01)
[2025-04-30] MEDS: Klor Con PO SCH (21:01)
[2025-04-30] MEDS: TYLENOL 325 MG PO PRN (23:41)
[2025-05-01 05:01] LABS: BASOPHIL % 0.6 % (0.1-1.2); Basophil (Absolute #) 0.04 x10^3/uL (0.01-0.08); Eosinophil (Absolute #) 0.49 x10^3/uL (0.04-0.36); Hematocrit 37.9 % (34.1-44.9); Hemoglobin 12.8 g/dL (11.2-15.7); IMMATURE GRAN # 0.04 x10^3u/L (0.001-0.031); IMMATURE GRAN % 0.6 % (0.001-0.429); Lymphocyte (Absolute #) 1.06 x10^3/uL (1.18-3.74); Mean Corpuscular Hemoglobin 30.5 pg (25.6-32.2); Mean Corpuscular Hgb Concent. 33.8 g/dL (32.2-35.5); Monocyte (Absolute #) 0.63 x10^3/uL (0.24-0.86); NUCLEATED RBC # 0.00 x10^3u/L (0.00-0.012); NUCLEATED RBC % 0.0 % (0.00-0.2); Platelet Count 281 x10^3/uL (182-369); Red Blood Count 4.19 x10^6/uL (3.93-5.22); White Blood Count 6.3 x10^3/uL (3.98-10.04)
[2025-05-01 05:32] LABS: Calcium 8.6 mg/dL (8.4-10.2); Carbon Dioxide 23.0 mmol/L (22-30); Cholesterol 182.0 mg/dL (50-200); Creatinine 1 0.67 mg/dL (0.52-1.04); EST GLOMERULAR FILTRATION RATE 90.5 ML/MIN; Glucose 94.0 mg/dL (74-106); LDL, DIRECT 91.0 mg/dL (30-100); Potassium 3.9 mmol/L (3.5-5.1); SGOT/AST 22.0 U/L (14-36); SGPT/ALT 12.0 U/L (0-35); TRIGLYCERIDE 85.0 mg/dL (30-150); Total Protein 6.9 g/dL (6.3-8.2)
--- NOTE | 2025-05-01 06:00 | PCM.NOTE ---
Date and Time: 05/01/25 0559 Subjective Assessment: is a 74 year old female with a pmhx of epilepsy, hypertension, asthma, osteoporosis, and GERD who presented to the emergency department on 04/30/25 for evaluation of acute neurologic deficits. She reports waking around 6:00 a.m. and noticing difficulty using her left hand while trying to hold her coffee cup, stating that her hand wouldnt work right. She returned to bed, hoping the symptoms would resolve. At approximately 9:00 a.m., when attempting to get out of bed, she noted new left leg weakness and an inability to stand or bear weight. She also describes dizziness, a mild headache, slurred speech, and brief episodes of blurry vision earlier in the morning. The patient further reports a pattern of recent falls at home, though she denies preceding chest pain, palpitations, or seizure activity. On arrival to the ED, vital signs were stable aside from hypertension with blood pressure 173/91. Labs were notable for BUN 18 and alkaline phosphatase 151; electrolytes and glucose were otherwise within normal limits. UA showed small leukocyte esterase, WBCs on microscopy, and many bacteria, suggesting possible early urinary infection. CT head without contrast revealed no acute intracranial pathology and only age-related cerebral atrophy with incidental paranasal sinus disease. CTA neck demonstrated minimal atherosclerotic calcifications at the origins of the right internal and external carotid arteries and mild calcification of the left carotid bulb, with no hemodynamically significant stenosis. Incidentally, patchy airspace disease was noted in the left upper and left lower lobes with a small effusion, as well as an indeterminate irregular non-calcified right lower-lobe perifissural nodule, along with osteopenia and multilevel cervical spondylosis. CTA head revealed very minimal calcifications of the parasellar internal carotids and distal vertebral arteries without bryon nosis or obstruction; the remainder of the study was unremarkable. Neurology evaluated the patient emergently and recommended a loading dose of clopidogrel 300 mg and aspirin 325 mg in the ED, followed by initiation of dual antiplatelet therapy with clopidogrel 75 mg daily and aspirin 81 mg beginning tomorrow. They advised permissive hypertension with systolic BP up to 220 mmHg for the first 24 hours. The patient reports prior intolerance to statins and currently takes ezetimibe. A lipid panel and HbA1c were ordered. MRI brain without contrast is planned for further evaluation. Echocardiogram will be obtained, though ZEN with bubble study is not available at this facility. She was placed on telemetry and additional labs including PT/PTT/INR and a dilantin level were sent. Speech therapy will perform bedside dysphagia screening prior to any oral intake. She received aspirin 325 mg, clopidogrel loading dose, IV fluids, and a dose of levofloxacin in the ED due to the airspace disease and possible UTI. 05/01: Met with patient at bedside. Patient continues to report significant weakness of the left upper and lower extremities, unchanged from earlier assessments. She denies new neurologic symptoms but states the weakness is limiting mobility and ability to safely perform ADLs. MRI brain/spine and echo remain pending. Urine culture is growing gram-negative rods, final sensitivities pending. CXR demonstrates a left upper-lobe infiltrate, consistent with pneumonia. She is clinically stable and tolerating therapy; continue Levaquin. Patient verbalizes that he will not be able to manage safely at home and requests placement at discharge. Case management updated and will begin placement planning. - Review of Systems Constitutional: Weakness Eyes: No Symptoms Ears, Nose, & Throat: No Symptoms Respiratory: Cough Cardiac: No Symptoms Abdominal/Gastrointestinal: No Symptoms Genitourinary Symptoms: No Symptoms Musculoskeletal: No Symptoms Skin: No Symptoms Neurological: Focal Weakness (JENI/LLE) Psychological: No Symptoms Endocrine: No Symptoms Hematologic/Lymphatic: No Symptoms Immunological/Allergic: No Symptoms Objective Exam General Appearance: no apparent distress Neurologic Exam: alert, oriented x 3, cooperative, motor deficits (weakness LUE/LLE) Skin Exam: normal color Eye Exam: PERRL Ears, Nose, Throat Exam: normal ENT inspection Neck Exam: normal inspection Respiratory Exam: normal breath sounds, lungs clear Cardiovascular Exam: regular rate/rhythm, normal heart sounds Gastrointestinal/Abdomen Exam: soft, normal bowel sounds Extremity Exam: normal inspection Back Exam: normal inspection Pelvic Exam: deferred Rectal Exam: deferred Objective Data Vital Signs: Vital Signs - 24 hr Temp Pulse Resp BP BP Pulse Ox 05/01/25 04:00 97.8 F 68 17 176/76 92 L 05/01/25 00:00 97.8 F 73 16 195/88 96 04/30/25 19:42 97.5 F 62 16 186/79 96 04/30/25 15:47 97.8 F 61 18 188/86 94 L 04/30/25 15:20 68 18 98 04/30/25 14:40 97.7 F 62 18 187/86 99 04/30/25 14:11 97.7 F 62 18 187/86 99 04/30/25 13:26 97 04/30/25 13:00 60 19 185/84 95 04/30/25 12:30 59 L 18 160/86 97 04/30/25 12:08 60 15 169/80 96 04/30/25 11:00 63 15 173/91 97 04/30/25 10:30 74 23 161/81 97 04/30/25 10:18 94 L 04/30/25 10:03 97.2 F 71 19 149/72 04/30/25 10:01 73 19 149/72 97 Pain Assessment - Last Documented Pain Intensity 0 Pain Scale Used 0-10 Pain Scale Intake and Output: Intake & Output 04/28/25 04/29/25 04/30/25 05/01/25 11:59 11:59 11:59 11:59 Intake Total 1524 Output Total 1300 Balance 224 Weight 68 kg 67 kg Lab Results: Lab Results-Last 24 Hours 04/30/25 04/30/25 04/30/25 Range/Units 09:30 09:50 09:50 WBC (3.98-10.04) x10^3/uL RBC (3.93-5.22) x10^6/uL Hgb (11.2-15.7) g/dL Hct (34.1-44.9) % MCV (79.4-94.8) fL MCH (25.6-32.2) pg MCHC (32.2-35.5) g/dL RDW (11.7-14.4) % Plt Count (182-369) x10^3/uL MPV (9.4-12.3) fL Gran % (34.0-71.1) % Immature Gran % (Auto) (0.001-0.429) % Nucleat RBC Rel Count (0.00-0.2) % Eos # (Auto) (0.04-0.36) x10^3/uL Immature Gran # (Auto) (0.001-0.031) x10^3u/L Absolute Lymphs (auto) (1.18-3.74) x10^3/uL Absolute Monos (auto) (0.24-0.86) x10^3/uL Absolute Nucleated RBC (0.00-0.012) x10^3u/L Lymphocytes % (19.3-51.7) % Monocytes % (4.7-12.5) % Eosinophils % (0.7-5.8) % Basophils % (0.1-1.2) % Absolute Granulocytes (1.56-6.13) x10^3/uL Basophils # (0.01-0.08) x10^3/uL PT 10.3 (9.4-12.5) SECONDS INR 0.92 (0.8-3.0) APTT 25.9 (25.1-36.5) SECONDS Sodium (135-145) mmol/L Potassium (3.5-5.1) mmol/L Chloride (98-107) mmol/L Carbon Dioxide (22-30) mmol/L Anion Gap (5-15) MEQ/L BUN (7-17) mg/dL Creatinine (0.52-1.04) mg/dL Estimated GFR ML/MIN Glucose (74-106) mg/dL POC Glucometer (74 to 106) mg/dL Hemoglobin A1c 5.05 (4.5-6.0) % Calcium (8.4-10.2) mg/dL Total Bilirubin (0.2-1.3) mg/dL AST (14-36) U/L ALT (0-35) U/L Alkaline Phosphatase (38-126) U/L Troponin I (0.000-0.033) ng/mL Serum Total Protein (6.3-8.2) g/dL Albumin (3.5-5.0) g/dL Triglycerides (30-150) mg/dL Cholesterol (50-200) mg/dL LDL Cholesterol (30-100) mg/dL HDL Cholesterol (40-60) mg/dL Heart Disease Risk Ratio TSH 3rd Generation (0.470-4.680) mIU/L Urine Color (Yellow) Urine Appearance (Clear) Urine pH (4.6-8.0) Ur Specific [place] (1.005-1.030) Urine Protein (Negative) Urine Glucose (UA) (Negative) mg/dL Urine Ketones (Negative) Urine Blood (Negative) Urine Nitrite (Negative) Urine Bilirubin (Negative) Urine Urobilinogen (0.2) mg/dL Ur Leukocyte Esterase (Negative) U Hyaline Cast (Auto) (0-2) /LPF Urine Microscopic RBC (0-5) /HPF Urine Microscopic WBC (0-5) /HPF Ur Epithelial Cells (None Seen) /HPF Urine Bacteria (None Seen) /HPF Urine Culture Reflexed (NO) Phenytoin 15.4 (10-20) ug/mL Ethyl Alcohol (0-10) mg/dL 04/30/25 04/30/25 04/30/25 Range/Units 10:15 10:18 10:18 WBC 6.8 (3.98-10.04) x10^3/uL RBC 4.34 (3.93-5.22) x10^6/uL Hgb 13.2 (11.2-15.7) g/dL Hct 40.4 (34.1-44.9) % MCV 93.1 (79.4-94.8) fL MCH 30.4 (25.6-32.2) pg MCHC 32.7 (32.2-35.5) g/dL RDW 14.2 (11.7-14.4) % Plt Count 304 (182-369) x10^3/uL MPV 9.9 (9.4-12.3) fL Gran % 64.0 (34.0-71.1) % Immature Gran % (Auto) 0.4 (0.001-0.429) % Nucleat RBC Rel Count 0.0 (0.00-0.2) % Eos # (Auto) 0.49 H (0.04-0.36) x10^3/uL Immature Gran # (Auto) 0.03 (0.001-0.031) x10^3u/L Absolute Lymphs (auto) 1.28 (1.18-3.74) x10^3/uL Absolute Monos (auto) 0.62 (0.24-0.86) x10^3/uL Absolute Nucleated RBC 0.00 (0.00-0.012) x10^3u/L Lymphocytes % 18.7 L (19.3-51.7) % Monocytes % 9.1 (4.7-12.5) % Eosinophils % 7.2 H (0.7-5.8) % Basophils % 0.6 (0.1-1.2) % Absolute Granulocytes 4.38 (1.56-6.13) x10^3/uL Basophils # 0.04 (0.01-0.08) x10^3/uL PT (9.4-12.5) SECONDS INR (0.8-3.0) APTT (25.1-36.5) SECONDS Sodium 137 (135-145) mmol/L Potassium 3.8 (3.5-5.1) mmol/L Chloride 104 (98-107) mmol/L Carbon Dioxide 23 (22-30) mmol/L Anion Gap 13.6 (5-15) MEQ/L BUN 18 H (7-17) mg/dL Creatinine 0.74 (0.52-1.04) mg/dL Estimated GFR 83.8 ML/MIN Glucose 107 H (74-106) mg/dL POC Glucometer 96 (74 to 106) mg/dL Hemoglobin A1c (4.5-6.0) % Calcium 8.9 (8.4-10.2) mg/dL Total Bilirubin 0.40 (0.2-1.3) mg/dL AST 27 (14-36) U/L ALT 14 (0-35) U/L Alkaline Phosphatase 151 H (38-126) U/L Troponin I (0.000-0.033) ng/mL Serum Total Protein 7.3 (6.3-8.2) g/dL Albumin 4.0 (3.5-5.0) g/dL Triglycerides (30-150) mg/dL Cholesterol (50-200) mg/dL LDL Cholesterol (30-100) mg/dL HDL Cholesterol (40-60) mg/dL Heart Disease Risk Ratio TSH 3rd Generation (0.470-4.680) mIU/L Urine Color (Yellow) Urine Appearance (Clear) Urine pH (4.6-8.0) Ur Specific [place] (1.005-1.030) Urine Protein (Negative) Urine Glucose (UA) (Negative) mg/dL Urine Ketones (Negative) Urine Blood (Negative) Urine Nitrite (Negative) Urine Bilirubin (Negative) Urine Urobilinogen (0.2) mg/dL Ur Leukocyte Esterase (Negative) U Hyaline Cast (Auto) (0-2) /LPF Urine Microscopic RBC (0-5) /HPF Urine Microscopic WBC (0-5) /HPF Ur Epithelial Cells (None Seen) /HPF Urine Bacteria (None Seen) /HPF Urine Culture Reflexed (NO) Phenytoin (10-20) ug/mL Ethyl Alcohol < 10 (0-10) mg/dL 04/30/25 04/30/25 04/30/25 Range/Units 10:18 11:39 14:00 WBC (3.98-10.04) x10^3/uL RBC (3.93-5.22) x10^6/uL Hgb (11.2-15.7) g/dL Hct (34.1-44.9) % MCV (79.4-94.8) fL MCH (25.6-32.2) pg MCHC (32.2-35.5) g/dL RDW (11.7-14.4) % Plt Count (182-369) x10^3/uL MPV (9.4-12.3) fL Gran % (34.0-71.1) % Immature Gran % (Auto) (0.001-0.429) % Nucleat RBC Rel Count (0.00-0.2) % Eos # (Auto) (0.04-0.36) x10^3/uL Immature Gran # (Auto) (0.001-0.031) x10^3u/L Absolute Lymphs (auto) (1.18-3.74) x10^3/uL Absolute Monos (auto) (0.24-0.86) x10^3/uL Absolute Nucleated RBC (0.00-0.012) x10^3u/L Lymphocytes % (19.3-51.7) % Monocytes % (4.7-12.5) % Eosinophils % (0.7-5.8) % Basophils % (0.1-1.2) % Absolute Granulocytes (1.56-6.13) x10^3/uL Basophils # (0.01-0.08) x10^3/uL PT (9.4-12.5) SECONDS INR (0.8-3.0) APTT (25.1-36.5) SECONDS Sodium (135-145) mmol/L Potassium (3.5-5.1) mmol/L Chloride (98-107) mmol/L Carbon Dioxide (22-30) mmol/L Anion Gap (5-15) MEQ/L BUN (7-17) mg/dL Creatinine (0.52-1.04) mg/dL Estimated GFR ML/MIN Glucose (74-106) mg/dL POC Glucometer (74 to 106) mg/dL Hemoglobin A1c (4.5-6.0) % Calcium (8.4-10.2) mg/dL Total Bilirubin (0.2-1.3) mg/dL AST (14-36) U/L ALT (0-35) U/L Alkaline Phosphatase (38-126) U/L Troponin I < 0.012 < 0.012 (0.000-0.033) ng/mL Serum Total Protein (6.3-8.2) g/dL Albumin (3.5-5.0) g/dL Triglycerides (30-150) mg/dL Cholesterol (50-200) mg/dL LDL Cholesterol (30-100) mg/dL HDL Cholesterol (40-60) mg/dL Heart Disease Risk Ratio TSH 3rd Generation (0.470-4.680) mIU/L Urine Color Yellow (Yellow) Urine Appearance Clear (Clear) Urine pH 6.0 (4.6-8.0) Ur Specific [place] 1.015 (1.005-1.030) Urine Protein Negative (Negative) Urine Glucose (UA) Negative (Negative) mg/dL Urine Ketones Negative (Negative) Urine Blood Negative (Negative) Urine Nitrite Negative (Negative) Urine Bilirubin Negative (Negative) Urine Urobilinogen 1.0 A (0.2) mg/dL Ur Leukocyte Esterase Small A (Negative) U Hyaline Cast (Auto) NONE SEEN (0-2) /LPF Urine Microscopic RBC 0-2 (0-5) /HPF Urine Microscopic WBC 6-10 A (0-5) /HPF Ur Epithelial Cells None Seen (None Seen) /HPF Urine Bacteria Many A (None Seen) /HPF Urine Culture Reflexed YES (NO) Phenytoin (10-20) ug/mL Ethyl Alcohol (0-10) mg/dL 04/30/25 04/30/25 04/30/25 Range/Units 15:30 15:34 15:34 WBC (3.98-10.04) x10^3/uL RBC (3.93-5.22) x10^6/uL Hgb (11.2-15.7) g/dL Hct (34.1-44.9) % MCV (79.4-94.8) fL MCH (25.6-32.2) pg MCHC (32.2-35.5) g/dL RDW (11.7-14.4) % Plt Count (182-369) x10^3/uL MPV (9.4-12.3) fL Gran % (34.0-71.1) % Immature Gran % (Auto) (0.001-0.429) % Nucleat RBC Rel Count (0.00-0.2) % Eos # (Auto) (0.04-0.36) x10^3/uL Immature Gran # (Auto) (0.001-0.031) x10^3u/L Absolute Lymphs (auto) (1.18-3.74) x10^3/uL Absolute Monos (auto) (0.24-0.86) x10^3/uL Absolute Nucleated RBC (0.00-0.012) x10^3u/L Lymphocytes % (19.3-51.7) % Monocytes % (4.7-12.5) % Eosinophils % (0.7-5.8) % Basophils % (0.1-1.2) % Absolute Granulocytes (1.56-6.13) x10^3/uL Basophils # (0.01-0.08) x10^3/uL PT 10.7 (9.4-12.5) SECONDS INR 0.95 (0.8-3.0) APTT 25.6 (25.1-36.5) SECONDS Sodium (135-145) mmol/L Potassium (3.5-5.1) mmol/L Chloride (98-107) mmol/L Carbon Dioxide (22-30) mmol/L Anion Gap (5-15) MEQ/L BUN (7-17) mg/dL Creatinine (0.52-1.04) mg/dL Estimated GFR ML/MIN Glucose (74-106) mg/dL POC Glucometer (74 to 106) mg/dL Hemoglobin A1c (4.5-6.0) % Calcium (8.4-10.2) mg/dL Total Bilirubin (0.2-1.3) mg/dL AST (14-36) U/L ALT (0-35) U/L Alkaline Phosphatase (38-126) U/L Troponin I (0.000-0.033) ng/mL Serum Total Protein (6.3-8.2) g/dL Albumin (3.5-5.0) g/dL Triglycerides (30-150) mg/dL Cholesterol (50-200) mg/dL LDL Cholesterol (30-100) mg/dL HDL Cholesterol (40-60) mg/dL Heart Disease Risk Ratio TSH 3rd Generation 3.296 (0.470-4.680) mIU/L Urine Color (Yellow) Urine Appearance (Clear) Urine pH (4.6-8.0) Ur Specific [place] (1.005-1.030) Urine Protein (Negative) Urine Glucose (UA) (Negative) mg/dL Urine Ketones (Negative) Urine Blood (Negative) Urine Nitrite (Negative) Urine Bilirubin (Negative) Urine Urobilinogen (0.2) mg/dL Ur Leukocyte Esterase (Negative) U Hyaline Cast (Auto) (0-2) /LPF Urine Microscopic RBC (0-5) /HPF Urine Microscopic WBC (0-5) /HPF Ur Epithelial Cells (None Seen) /HPF Urine Bacteria (None Seen) /HPF Urine Culture Reflexed (NO) Phenytoin 14.5 (10-20) ug/mL Ethyl Alcohol (0-10) mg/dL 04/30/25 05/01/25 05/01/25 Range/Units 18:05 04:16 04:16 WBC 6.3 (3.98-10.04) x10^3/uL RBC 4.19 (3.93-5.22) x10^6/uL Hgb 12.8 (11.2-15.7) g/dL Hct 37.9 (34.1-44.9) % MCV 90.5 (79.4-94.8) fL MCH 30.5 (25.6-32.2) pg MCHC 33.8 (32.2-35.5) g/dL RDW 14.1 (11.7-14.4) % Plt Count 281 (182-369) x10^3/uL MPV 10.3 (9.4-12.3) fL Gran % 64.5 (34.0-71.1) % Immature Gran % (Auto) 0.6 H (0.001-0.429) % Nucleat RBC Rel Count 0.0 (0.00-0.2) % Eos # (Auto) 0.49 H (0.04-0.36) x10^3/uL Immature Gran # (Auto) 0.04 H (0.001-0.031) x10^3u/L Absolute Lymphs (auto) 1.06 L (1.18-3.74) x10^3/uL Absolute Monos (auto) 0.63 (0.24-0.86) x10^3/uL Absolute Nucleated RBC 0.00 (0.00-0.012) x10^3u/L Lymphocytes % 16.7 L (19.3-51.7) % Monocytes % 9.9 (4.7-12.5) % Eosinophils % 7.7 H (0.7-5.8) % Basophils % 0.6 (0.1-1.2) % Absolute Granulocytes 4.08 (1.56-6.13) x10^3/uL Basophils # 0.04 (0.01-0.08) x10^3/uL PT (9.4-12.5) SECONDS INR (0.8-3.0) APTT (25.1-36.5) SECONDS Sodium 136 (135-145) mmol/L Potassium 3.9 (3.5-5.1) mmol/L Chloride 104 (98-107) mmol/L Carbon Dioxide 23 (22-30) mmol/L Anion Gap 12.7 (5-15) MEQ/L BUN 13 (7-17) mg/dL Creatinine 0.67 (0.52-1.04) mg/dL Estimated GFR 90.5 ML/MIN Glucose 94 (74-106) mg/dL POC Glucometer (74 to 106) mg/dL Hemoglobin A1c (4.5-6.0) % Calcium 8.6 (8.4-10.2) mg/dL Total Bilirubin 0.40 (0.2-1.3) mg/dL AST 22 (14-36) U/L ALT 12 (0-35) U/L Alkaline Phosphatase 143 H (38-126) U/L Troponin I < 0.012 (0.000-0.033) ng/mL Serum Total Protein 6.9 (6.3-8.2) g/dL Albumin 3.7 (3.5-5.0) g/dL Triglycerides 85 (30-150) mg/dL Cholesterol 182 (50-200) mg/dL LDL Cholesterol 91 (30-100) mg/dL HDL Cholesterol 58 (40-60) mg/dL Heart Disease Risk Ratio 3.0 TSH 3rd Generation (0.470-4.680) mIU/L Urine Color (Yellow) Urine Appearance (Clear) Urine pH (4.6-8.0) Ur Specific [place] (1.005-1.030) Urine Protein (Negative) Urine Glucose (UA) (Negative) mg/dL Urine Ketones (Negative) Urine Blood (Negative) Urine Nitrite (Negative) Urine Bilirubin (Negative) Urine Urobilinogen (0.2) mg/dL Ur Leukocyte Esterase (Negative) U Hyaline Cast (Auto) (0-2) /LPF Urine Microscopic RBC (0-5) /HPF Urine Microscopic WBC (0-5) /HPF Ur Epithelial Cells (None Seen) /HPF Urine Bacteria (None Seen) /HPF Urine Culture Reflexed (NO) Phenytoin (10-20) ug/mL Ethyl Alcohol (0-10) mg/dL Radiology Exams: Radiology Procedures Category Date Time Status CHEST 1 VIEW (PORTABLE) Stat Exams 04/30/25 15:[address] ANGIOGRAPHY NECK [CT] Stat Exams 04/30/25 10:11 Completed CTA HEAD W AND/OR WO CONTRAST [CT] Stat Exams 04/30/25 10:11 Completed ECHO W/2D AND DOPPLER [US] Routine Exams 05/01/25 15:02 Ordered HEAD WITHOUT CONTRAST [CT] Stat Exams 04/30/25 09:51 Completed MRI BRAIN W/O CONTRAST [MRI] Routine Exams 05/01/25 13:00 Ordered Medications: Medications Generic Name Dose Route Start Last Admin Trade Name Freq PRN Reason Stop Dose Admin Acetaminophen 650 mg 04/30/25 15:00 04/30/25 23:41 Acetaminophen 325 Mg Tablet PO 05/30/25 14:59 650 mg Q4H PRN PRN Administration PAIN, FEVER, HEADACHE Aspirin 81 mg 05/01/25 10:00 Aspirin 81 Mg Tablet.Ec PO 05/31/25 09:59 DAILY PAZ Clopidogrel Bisulfate 75 mg 05/01/25 10:00 Clopidogrel Bisulfate 75 Mg Tablet PO 05/31/25 09:59 DAILY [facility] Cyanocobalamin 1,000 mcg 05/20/25 10:00 Cyanocobalamin 1000 Mcg/Ml Vial SQ 06/19/25 09:59 Q30D PAZ Ezetimibe 10 mg 05/01/25 10:00 Ezetimibe 10 Mg Tab PO 05/31/25 09:59 DAILY PAZ Ergocalciferol 50,000 unit 04/30/25 18:00 04/30/25 17:13 Ergocalciferol (Vitamin D2) 50,000 Unit Capsule PO 05/30/25 17:59 50,000 unit Q7D PAZ Administration Escitalopram Oxalate 20 mg 05/01/25 10:00 Escitalopram Oxalate 10 Mg Tablet PO 05/31/25 09:59 DAILY [facility] Hydralazine HCl 5 mg 04/30/25 19:05 Hydralazine Hcl 20 Mg/Ml Vial IV 05/30/25 19:04 Q4H PRN HYPERTENSION Sodium Chloride 1,000 mls @ 50 mls/hr 04/30/25 15:00 04/30/25 19:35 Sodium Chloride 0.9% 1000 Ml IV 05/30/25 14:59 50 mls/hr .Q20H PAZ Administration Levofloxacin/Dextrose 750 mg in 150 mls @ 100 mls/hr 05/01/25 10:00 Levofloxacin 750mg/150ml D5w IV 05/31/25 09:59 Q24H10 PAZ Montelukast Sodium 10 mg 05/01/25 10:00 Montelukast Sodium 10 Mg Tablet PO 05/31/25 09:59 DAILY [facility] Ondansetron HCl 4 mg 04/30/25 15:00 Ondansetron Hcl 4 Mg/2 Ml Vial IV 05/30/25 14:59 Q6H PRN PRN NAUSEA/VOMITING Pantoprazole Sodium 40 mg 04/30/25 22:00 04/30/25 21:01 Protonix (Pantoprazole) 40 Mg Tablet PO 05/30/25 21:59 40 mg BID PAZ Administration Phenytoin Sodium 300 mg 04/30/25 22:00 04/30/25 21:01 Phenytoin Sodium Extended 100 Mg Capsule PO 05/30/25 21:59 300 mg HS PAZ Administration Potassium Chloride 10 meq 04/30/25 22:00 04/30/25 21:01 Potassium Chloride Tab 10 Meq Tab PO 05/30/25 21:59 10 meq BID PAZ Administration Pregabalin 75 mg 04/30/25 22:00 04/30/25 21:01 Pregabalin 75 Mg Capsule PO 05/30/25 21:59 75 mg BID PAZ Administration Discontinued Medications Generic Name Dose Route Start Last Admin Trade Name Freq PRN Reason Stop Dose Admin Albuterol/Ipratropium 3 ml 04/30/25 15:00 Ipratropium/Albuterol Sulfate 3 Ml Ampul.Neb IH 05/30/25 14:59 Q6H PRN PRN SHORTNESS OF BREATH/WHEEZING Aspirin 324 mg 04/30/25 11:13 04/30/25 11:20 Aspirin 81 Mg Tab.Chew PO 04/30/25 11:14 324 mg STAT ONE Administration Aspirin Confirm 04/30/25 11:19 Aspirin 81 Mg Tab.Chew Administered 04/30/25 11:20 Dose 324 mg .ROUTE .STK-MED ONE Clopidogrel Bisulfate 300 mg 04/30/25 11:12 04/30/25 11:19 Clopidogrel Bisulfate 75 Mg Tablet PO 04/30/25 11:13 300 mg STAT ONE Administration Clopidogrel Bisulfate Confirm 04/30/25 11:19 Clopidogrel Bisulfate 75 Mg Tablet Administered 04/30/25 11:20 Dose 300 mg .ROUTE .STK-MED ONE Sodium Chloride 1,000 mls @ 100 mls/hr 04/30/25 10:15 04/30/25 10:21 Sodium Chloride 0.9% 1000 Ml IV 05/30/25 10:14 100 mls/hr .Q10H PAZ Administration Levofloxacin/Dextrose 500 mg in 100 mls @ 100 mls/hr 04/30/25 12:58 04/30/25 13:19 Levofloxacin 500mg/100ml D5w IV 04/30/25 13:57 100 mls/hr STAT STA 100 mls/hr Administration Levofloxacin/Dextrose Confirm 04/30/25 13:19 Levofloxacin 500mg/100ml D5w Administered 04/30/25 13:20 Dose 500 mg in 100 mls @ ud IV .STK-MED ONE Sodium Chloride Confirm 04/30/25 10:20 Sodium Chloride 0.9% 1000 Ml Administered 04/30/25 10:21 Dose 1,000 mls @ ud .ROUTE .STK-MED ONE Assessment/Plan (1) Cerebral infarction, unspecified Current Visit: Yes Status: Acute Assessment & Plan: -CT/CTA head and neck without acute occlusion; MRI pending -Neurology note reviewed and agree with plan -CMP/CBC reviewed -Dual antiplatelet therapy per neurology: aspirin 325 mg + clopidogrel 300 mg load, then aspirin 81 mg + clopidogrel 75 mg daily starting tomorrow -Permissive hypertension up to SBP 220 for 24 hours. -Tele -Dysphagia screen prior to PO intake; [employer] consult. -Lipid panel, HbA1c, PT/PTT/INR, antiepileptic level. -Echocardiogram ordered; ZEN with bubble study unavailable at this facility. 05/01: -MRI/Echo pending results -Plavix 75mg and ASA 81mg continued, zetia continued -PT/OT eval -Lipid panel WNL; A1c 5.05; TSH WNL PT PTT WNL -Neuro to be reconsulted once MRI is completed Code(s): I63.9 - CEREBRAL INFARCTION, UNSPECIFIED Weakness -Continue workup with pending MRI brain/spine and echo to evaluate for stroke, structural lesion, or cardiogenic etiology. -PT/OT to assess functional deficits and provide early mobility interventions. -Fall precautions in place; assist with all transfers. -Patient states she cannot safely return home and requests placement at discharge. Case management notified and working on SNF placement. (2) Other nonspecific abnormal finding of lung field Current Visit: Yes Status: Acute Assessment & Plan: -CTA shows patchy opacities involving JUDI and LLL with a small reactive pleural effusion;Appearance most consistent with infectious or inflammatory etiology. -CXR ordered for serial comparison. -Right Lower Lobe Perifissural Pulmonary Nodule (Indeterminate); Irregular non- calcified perifissural nodule note;No acute malignant features or airway obstruction identified;Radiology addendum requested for size clarification. -Plan outpatient CT chest for interval surveillance -Left Pleural Effusion (Small);Small reactive effusion adjacent to LLL opacities;No signs of empyema or large fluid accumulation requiring intervention. -Levaquin started in ED due to allergy profile will continue 05/01: -CXR with JUDI infiltrate -continue levaquin -Follow up OP for pulm nodule Code(s): R91.8 - OTHER NONSPECIFIC ABNORMAL FINDING OF LUNG FIELD (3) Epilepsy Current Visit: Yes Status: Acute Assessment & Plan: -Dilantin level per neuro recs -continue home meds -seizure precautions Code(s): G40.909 - EPILEPSY, UNSP, NOT INTRACTABLE, WITHOUT STATUS EPILEPTICUS (4) HTN (hypertension) Current Visit: Yes Status: Acute Assessment & Plan: -Temporarily allow permissive hypertension SBP up to 220 -Resume chronic antihypertensives after 24-hour stroke window Code(s): I10 - ESSENTIAL (PRIMARY) HYPERTENSION (5) Asthma Current Visit: Yes Status: Acute Assessment & Plan: -Continue home inhalers as ordered -RT to follow Code(s): J45.909 - UNSPECIFIED ASTHMA, UNCOMPLICATED (6) Osteoporosis Current Visit: Yes Status: Acute Assessment & Plan: -Noted incidental osteopenia on imaging. -Continue chronic management; ensure fall precautions. Code(s): M81.0 - AGE-RELATED OSTEOPOROSIS W/O CURRENT PATHOLOGICAL FRACTURE (7) GERD (gastroesophageal reflux disease) Current Visit: Yes Status: Acute Assessment & Plan: -continue home meds Code(s): K21.9 - GASTRO-ESOPHAGEAL REFLUX DISEASE WITHOUT ESOPHAGITIS (8) HLD (hyperlipidemia) Current Visit: Yes Status: Acute Assessment & Plan: -On ezetimibe; lipid panel pending. -Consider alternative non-statin therapy depending on results Code(s): E78.5 - HYPERLIPIDEMIA, UNSPECIFIED (9) Urinary tract infection Current Visit: Yes Status: Acute Assessment & Plan: -UA suspicious for UTI, levaquin initiated, will continue 05/01: -Ucult with gram - ID, continue levaquin - follow culture results VTE: SCD/ASA/Plavix for now PPI: Protonix Dispo: 1-2 days Code status: SCO Code(s): I63.9 - CEREBRAL INFARCTION, UNSPECIFIED (2) Other nonspecific abnormal finding of lung field Current Visit: Yes Status: Acute Code(s): R91.8 - OTHER NONSPECIFIC ABNORMAL FINDING OF LUNG FIELD (3) Epilepsy Current Visit: Yes Status: Acute Code(s): G40.909 - EPILEPSY, UNSP, NOT INTRACTABLE, WITHOUT STATUS EPILEPTICUS (4) HTN (hypertension) Current Visit: Yes Status: Acute Code(s): I10 - ESSENTIAL (PRIMARY) HYPERTENSION (5) Asthma Current Visit: Yes Status: Acute Code(s): J45.909 - UNSPECIFIED ASTHMA, UNCOMPLICATED (6) Osteoporosis Current Visit: Yes Status: Acute Code(s): M81.0 - AGE-RELATED OSTEOPOROSIS W/O CURRENT PATHOLOGICAL FRACTURE (7) GERD (gastroesophageal reflux disease) Current Visit: Yes Status: Acute Code(s): K21.9 - GASTRO-ESOPHAGEAL REFLUX DISEASE WITHOUT ESOPHAGITIS (8) HLD (hyperlipidemia) Current Visit: Yes Status: Acute Code(s): E78.5 - HYPERLIPIDEMIA, UNSPECIFIED (9) Urinary tract infection Current Visit: Yes Status: Acute Code(s): N39.0 - URINARY TRACT INFECTION, SITE NOT SPECIFIED (10) Weakness Current Visit: Yes Status: Acute Code(s): R53.1 - WEAKNESS
[2025-05-01] MEDS ORDERED: APRESOLINE 20 MG/ML INJ IV PRN (06:36)
[2025-05-01] MEDS: ECOTRIN 81 MG PO SCH (09:02)
[2025-05-01] MEDS: PLAVIX Tablet PO SCH (09:02)
[2025-05-01] MEDS: Singulair 10 MG PO SCH (09:02)
[2025-05-01] MEDS: LEVOFLOXACIN 750MG/150ML D5W 750 MG/150 ML BAG IV SCH (09:03)
[2025-05-01] MEDS: Zetia 10 MG PO SCH (09:03)
[2025-05-01] MEDS: Lexapro PO SCH (09:03)
--- NOTE | 2025-05-01 14:29 | XRAY ---
Indication: Stroke symptoms. Sagittal, coronal, and axial MRI brain performed without contrast using T1, T2, FLAIR, diffusion, and ADC sequences. Comparison: August 05, 2015 Several images/sequences degraded by motion artifact, especially axial FLAIR sequences. There is age-appropriate global atrophy with progressive worsening moderate diffuse periventricular degenerative microischemia signal bilaterally. Diffusion images now demonstrates several foci of subcortical serpiginous shaped restricted signal in posterior right temporoparietal and right occipital lobes favoring acute ischemia. Larger 1.2 x 1.6 cm deeper focus acute ischemia seen posterior right periventricular white matter. No acute intracranial hemorrhage or mass effect. 4th ventricle is midline without hydrocephalus. 7/8 cranial nerve complex bilaterally symmetric. Normal flow void signal within the major intracerebral circulation. Normal appearing craniocervical junction and sella turcica. Visualized paranasal sinuses are clear. Impression: 1. Motion artifact. 2. New multifocal serpiginous shaped acute ischemia posterior right temporal parietal and right occipital lobes. No acute hemorrhage or mass effect. 3. Progressive age-appropriate atrophy and degenerative micro ischemia.
[2025-05-01] MEDS: Zofran 4 MG/2 ML VIAL IV PRN (14:43)
[2025-05-02 05:45] LABS: BASOPHIL % 0.8 % (0.1-1.2); Basophil (Absolute #) 0.05 x10^3/uL (0.01-0.08); Eosinophil (Absolute #) 0.50 x10^3/uL (0.04-0.36); Hematocrit 36.0 % (34.1-44.9); Hemoglobin 11.9 g/dL (11.2-15.7); IMMATURE GRAN # 0.04 x10^3u/L (0.001-0.031); IMMATURE GRAN % 0.6 % (0.001-0.429); Lymphocyte (Absolute #) 1.19 x10^3/uL (1.18-3.74); Mean Corpuscular Hemoglobin 30.0 pg (25.6-32.2); Mean Corpuscular Hgb Concent. 33.1 g/dL (32.2-35.5); Monocyte (Absolute #) 0.58 x10^3/uL (0.24-0.86); NUCLEATED RBC # 0.00 x10^3u/L (0.00-0.012); NUCLEATED RBC % 0.0 % (0.00-0.2); Platelet Count 290 x10^3/uL (182-369); Red Blood Count 3.97 x10^6/uL (3.93-5.22); White Blood Count 6.4 x10^3/uL (3.98-10.04)
[2025-05-02 06:34] LABS: Calcium 8.8 mg/dL (8.4-10.2); Carbon Dioxide 22.0 mmol/L (22-30); Creatinine 1 0.76 mg/dL (0.52-1.04); EST GLOMERULAR FILTRATION RATE 81.2 ML/MIN; Glucose 98.0 mg/dL (74-106); Potassium 4.1 mmol/L (3.5-5.1); SGOT/AST 22.0 U/L (14-36); SGPT/ALT 11.0 U/L (0-35); Total Protein 6.7 g/dL (6.3-8.2)
[2025-05-02] MEDS: NORVASC 5 MG PO SCH (09:44)
--- NOTE | 2025-05-02 11:18 | PCM.NOTE ---
Date and Time: 05/02/25 1113 Subjective Assessment: No acute events overnight. c/o right retrorbital headache, severity 5/10.Left side weakness improving. RN at bedside REVIEW OF SYSTEMS Constitutional: Denies fevers, chills, ENT: Denies tinnitus Ophthalmology: Denies diplopia, vision loss. c/o blurred vision, Respiratory: Denies SOB, cough Cardiovascular: Denies chest pains, palpitations GI: Denies nausea, vomiting : Denies hematuria Hematology: Denies excessive bleeding Musculoskeletal: Denies back pain, neck pain, joint pain Neurology: Denies altered mentation, focal weakness, speech change, numbness, tingling Mental Health: Denies anxiety Dermatology: Denies rash Objective Exam - Vital Signs Vital Signs: Vital Signs - 24 hr 05/01/25 05/01/25 05/01/25 11:57 16:00 20:00 Temperature 98.4 F 97 F 97.4 F Pulse Rate 69 70 69 Respiratory 18 16 16 Rate Blood Pressure 140/72 160/73 164/76 [Right Arm] O2 Sat by Pulse 96 98 90 L Oximetry 05/02/25 05/02/25 05/02/25 00:00 04:00 07:38 Temperature 97.4 F 97.7 F 97.6 F Pulse Rate 70 81 59 L Respiratory 16 18 16 Rate Blood Pressure 159/74 162/75 195/86 [Right Arm] O2 Sat by Pulse 96 94 L 92 L Oximetry - Physical Exam General: no acute distress, well developed Mental Status: alert, awake and oriented Cranial nerves: Pupils are round and reactive,no anisocoria, extra ocular movements intact, + Blink, Visual renner are full to finger counting, no extinction to double Motor: antigravity in all 4 ext, no drift noted, normal bulk, weak motor strength LUE, weak motor strength LLE Sens:: intact to touch in all 4 Movement:: no tremors noted, JOSHUA/FTN intact. No ataxia Gait: deferred - NIHSS Stroke Scale Date Completed: 05/02/25 Time Stroke Scale Completed: 08:14 Level of Consciousness: Alert Level of Questions: Answers both correctly LOC Commands: Obeys both correctly Best Gaze: Normal Visual: No visual loss Facial Palsy: Minor Motor Arm-Left: Can't resist gravity Motor Leg-Left: No effort against gravity Motor Leg Right: No Drift Limb Ataxia: Absent Sensory: Partial Loss Dysarthria: Mild to mod dysarthria Extinction and Inattention: No Neglect Stroke Risk Level: 8 Objective Data - Labs Lab/Micro Results: Lab Results-Last 24 Hours 05/02/25 05/02/25 Range/Units 05:27 05:27 WBC 6.4 (3.98-10.04) x10^3/uL RBC 3.97 (3.93-5.22) x10^6/uL Hgb 11.9 (11.2-15.7) g/dL Hct 36.0 (34.1-44.9) % MCV 90.7 (79.4-94.8) fL MCH 30.0 (25.6-32.2) pg MCHC 33.1 (32.2-35.5) g/dL RDW 14.4 (11.7-14.4) % Plt Count 290 (182-369) x10^3/uL MPV 10.3 (9.4-12.3) fL Gran % 63.3 (34.0-71.1) % Immature Gran % (Auto) 0.6 H (0.001-0.429) % Nucleat RBC Rel Count 0.0 (0.00-0.2) % Eos # (Auto) 0.50 H (0.04-0.36) x10^3/uL Immature Gran # (Auto) 0.04 H (0.001-0.031) x10^3u/L Absolute Lymphs (auto) 1.19 (1.18-3.74) x10^3/uL Absolute Monos (auto) 0.58 (0.24-0.86) x10^3/uL Absolute Nucleated RBC 0.00 (0.00-0.012) x10^3u/L Lymphocytes % 18.5 L (19.3-51.7) % Monocytes % 9.0 (4.7-12.5) % Eosinophils % 7.8 H (0.7-5.8) % Basophils % 0.8 (0.1-1.2) % Absolute Granulocytes 4.08 (1.56-6.13) x10^3/uL Basophils # 0.05 (0.01-0.08) x10^3/uL Sodium 135 (135-145) mmol/L Potassium 4.1 (3.5-5.1) mmol/L Chloride 106 (98-107) mmol/L Carbon Dioxide 22 (22-30) mmol/L Anion Gap 10.5 (5-15) MEQ/L BUN 12 (7-17) mg/dL Creatinine 0.76 (0.52-1.04) mg/dL Estimated GFR 81.2 ML/MIN Glucose 98 (74-106) mg/dL Calcium 8.8 (8.4-10.2) mg/dL Total Bilirubin 0.30 (0.2-1.3) mg/dL AST 22 (14-36) U/L ALT 11 (0-35) U/L Alkaline Phosphatase 136 H (38-126) U/L Serum Total Protein 6.7 (6.3-8.2) g/dL Albumin 3.6 (3.5-5.0) g/dL Microbiology 04/30/25 11:39 Urine Culture - Final Urine, Void Escherichia Coli - Radiology Orders Radiology Orders: Radiology Procedures Category Date Time Status CHEST 1 VIEW (PORTABLE) Stat Exams 04/30/25 15:00 Completed ECHO W/2D AND DOPPLER [US] Routine Exams 05/01/25 15:02 Taken MRI BRAIN W/O CONTRAST [MRI] Routine Exams 05/01/25 13:00 Completed - MRI Impressions MRA brain w/contrast Status: image reviewed by me Assessment & Plan (1) HLD (hyperlipidemia) Current Visit: Yes Status: Acute Code(s): E78.5 - HYPERLIPIDEMIA, UNSPECIFIED (2) Cerebral infarction, unspecified Current Visit: Yes Status: Acute Qualifiers: Cerebral infarction mechanism: unspecified mechanism Qualified Code(s): I63.9 - Cerebral infarction, unspecified Assessment & Plan: Stroke acute management: - Admit to stroke unit - Frequent neuro-checks (q4h) - BP goal <130/80 - NPO until after INSIGHTS ANALYST eval -Replace electrolytes prn -Keep K >4.0, Mg > 2.0. - Head of bed > 30 degrees for aspiration prevention and aspiration precautions Stroke workup: -CTH: no acute lesion -stat CTA head and neck: no LVO -MRI brain w/o con:right parieto-occipital acute infarct. no hemorrhage -Trans-thoracic echocardiogram : EF 55-60 %. no obvious cardiac source of emboli -Continuous cardiac telemetry to monitor for arrhythmia -Stroke labwork: HgbA1C 5.5, LDL 91 Secondary prevention of stroke: -s/p Aspirin 325mg and plavix 300mg load then asa 81mg and plavix 75mg daily for 3 weeks then asa 81mg daily -zetimibe 10 mg daily (long-term goal LDL < 70) -Tight glucose control (long-term goal HgbA1c < 7%) -Stroke education and counseling -If smoker, smoking counseling and offer assistance with smoking cessation (possible nicotine patch) Stroke rehabilitation: -Physical therapy, occupational therapy, speech therapy consults -Consult social work and case management for help with discharge #epilepsy -resume home phenytoin -seizure precautions Neurology follow up in 2-4 weeks Medical Decision making Acute issues prompting hospitalization enumerated, reviewed and managed individually as above. Complexity of Chronic Problems enumerated, reviewed and managed individually as above. Independently interpreted labs and radiology. Risk of morbidity reviewed. Additional testing/treatment as discussed individually above. Discussed findings with patient/family, charge nurse/bedside nurse. Included in the discussion were the latest clinical, laboratory and imaging findings. We also discussed updated working diagnosis, overall impression and updated plan of care. In this discussion, current plan for treatment, medication indication discussed. Patient/family member agreeable to discussed plan of care. I answered all the questions to their satisfaction. Acute care plan was discussed with Dr keita Thank you for allowing us to participate in this patients care. Please call [facility] with questions, concerns, or change in patients neurological status. This consult was performed via secure telemedicine 2 way audio/visual platform, patient consent obtained. Code(s): I63.9 - CEREBRAL INFARCTION, UNSPECIFIED - Encounter Encounter: "The entirety of this encounter was performed via Telemedicine using audio and visual "
--- NOTE | 2025-05-02 12:21 | PCM.DS ---
Discharge Summary Date of Admission: 04/30/25 14:07 Date of Discharge: 05/02/25 Admitting Physician: FELISA QUINN MD Consults: Consults on Case 04/30/25 10:15 Consult Neurology ROUTINE Primary Care Provider: EDMUNDO VARGAS Allergies Allergies Penicillins Allergy (Mild, Verified 04/30/25 14:27) Hives Sulfa (Sulfonamide Antibiotics) [Sulfa(Sulfonamide Antibiotics)] Allergy (Mild, Verified 04/30/25 14:27) Hives tramadol [From Ultram] Adverse Reaction (Verified 04/30/25 14:27) Hospital Summary - Hospital Course Hospital Course: This patient was admitted with weakness left arm and leg. She was seen by Neurology. She was outside the window for lytic therapy. She was seen by PT/OT/ST. Lipid panes was done and she was treated with statin. MRI showed acute infarct in right parietal/occipital area. Echocardiogram showed no source of emboli. She was placed on aspirin and Plavix. Zetia was started per neurology recommendations. After 2 days antihypertensive meds were restarted. She was cleared by neurology for discharge and will be dismissed on 05/02/25. - Vitals & Intake/Output Vital Signs: Vital Signs Temperature 97.6 F 05/02/25 07:38 Pulse Rate 59 L 05/02/25 07:38 Respiratory Rate 16 05/02/25 07:38 Blood Pressure 195/86 05/02/25 07:38 O2 Sat by Pulse Oximetry 92 L 05/02/25 07:38 Intake & Output: Intake & Output 04/30/25 05/01/25 05/02/25 05/03/25 11:59 11:59 11:59 11:59 Intake Total 1921 1320 Output Total 1600 950 Balance 321 370 Weight 68 kg 62.3 kg - Lab Result Diagrams: 05/02/25 05:27 05/02/25 05:27 Lab Results-Last 24 Hrs: Lab Results-Last 24 Hours 05/02/25 05/02/25 Range/Units 05:27 05:27 WBC 6.4 (3.98-10.04) x10^3/uL RBC 3.97 (3.93-5.22) x10^6/uL Hgb 11.9 (11.2-15.7) g/dL Hct 36.0 (34.1-44.9) % MCV 90.7 (79.4-94.8) fL MCH 30.0 (25.6-32.2) pg MCHC 33.1 (32.2-35.5) g/dL RDW 14.4 (11.7-14.4) % Plt Count 290 (182-369) x10^3/uL MPV 10.3 (9.4-12.3) fL Gran % 63.3 (34.0-71.1) % Immature Gran % (Auto) 0.6 H (0.001-0.429) % Nucleat RBC Rel Count 0.0 (0.00-0.2) % Eos # (Auto) 0.50 H (0.04-0.36) x10^3/uL Immature Gran # (Auto) 0.04 H (0.001-0.031) x10^3u/L Absolute Lymphs (auto) 1.19 (1.18-3.74) x10^3/uL Absolute Monos (auto) 0.58 (0.24-0.86) x10^3/uL Absolute Nucleated RBC 0.00 (0.00-0.012) x10^3u/L Lymphocytes % 18.5 L (19.3-51.7) % Monocytes % 9.0 (4.7-12.5) % Eosinophils % 7.8 H (0.7-5.8) % Basophils % 0.8 (0.1-1.2) % Absolute Granulocytes 4.08 (1.56-6.13) x10^3/uL Basophils # 0.05 (0.01-0.08) x10^3/uL Sodium 135 (135-145) mmol/L Potassium 4.1 (3.5-5.1) mmol/L Chloride 106 (98-107) mmol/L Carbon Dioxide 22 (22-30) mmol/L Anion Gap 10.5 (5-15) MEQ/L BUN 12 (7-17) mg/dL Creatinine 0.76 (0.52-1.04) mg/dL Estimated GFR 81.2 ML/MIN Glucose 98 (74-106) mg/dL Calcium 8.8 (8.4-10.2) mg/dL Total Bilirubin 0.30 (0.2-1.3) mg/dL AST 22 (14-36) U/L ALT 11 (0-35) U/L Alkaline Phosphatase 136 H (38-126) U/L Serum Total Protein 6.7 (6.3-8.2) g/dL Albumin 3.6 (3.5-5.0) g/dL Micro Results-Entire Visit: Microbiology 04/30/25 11:39 Urine Culture - Final Urine, Void Escherichia Coli - Radiology Exams Ordered Rad Exams-Entire Visit: Radiology Procedures Category Date Time Status CHEST 1 VIEW (PORTABLE) Stat Exams 04/30/25 15:00 Completed ECHO W/2D AND DOPPLER [US] Routine Exams 05/01/25 15:02 Taken MRI BRAIN W/O CONTRAST [MRI] Routine Exams 05/01/25 13:00 Completed - Procedures and Test Procedures and Tests throughout Hospitalization: Therapy Orders & Screens 04/30/25 15:00 PT Eval & Treat ( Order) ONCE Reason for Eval:: weakness JENI/LLE Diagnosis: Stroke, urinary tract infection,pneumonia OT Eval and Treat ( Order) ONCE Comment: Physician Instructions: Reason For Exam: Diagnosis: Stroke, urinary tract infection,pneumonia 04/30/25 16:24 Respiratory Therapy Assessment DAILY Comment: Diagnosis: Stroke, urinary tract infection,pneumonia 04/30/25 17:12 Speech Therapy Eval & Treat [ST Eval & Treat (MD Order)] .as ordered Comment: Physician Instructions: Reason For Exam: stroke workup Evaluate: Yes Treat: Yes Reason for Eval: Speech-language and cognitive-communication evaluation as part of standard stroke workup Diagnosis: Stroke, urinary tract infection,pneumonia Discharge Exam General Appearance: no apparent distress Neurologic Exam: alert, oriented x 3, cooperative, motor deficits (WEakness left arm and leg) Eye Exam: PERRL, EOMI Ears, Nose, Throat Exam: normal ENT inspection Neck Exam: normal inspection, non-tender, supple Respiratory Exam: normal breath sounds Cardiovascular Exam: regular rate/rhythm, normal heart sounds Gastrointestinal/Abdomen Exam: soft, normal bowel sounds, No tenderness, No distention Pelvic Exam: deferred Rectal Exam: deferred Back Exam: normal inspection Extremity Exam: normal inspection Skin Exam: normal color Lymphatic Exam: No adenopathy Final Diagnosis/Problem List - Final Discharge Diagnosis/Problem (1) Cerebral infarction, unspecified Current Visit: Yes Status: Acute Assessment & Plan: (1) Cerebral infarction, unspecified Current Visit: Yes Status: Acute Assessment & Plan: -CT/CTA head and neck without acute occlusion; - MRI shows acute stroke right temporal region -Neurology note reviewed and agree with plan -Patient cleared for discharge -Echo showed no source of emboli -Dual antiplatelet therapy per neurology: aspirin 325 mg + clopidogrel 300 mg load, then aspirin 81 mg + clopidogrel 75 mg daily starting tomorrow -Continue BP meds -Lipid panel, HbA1c, PT/PTT/INR, antiepileptic level. -Plavix 75mg and ASA 81mg continued, zetia continued -PT/OT/ST eval -Lipid panel WNL; A1c 5.05; TSH WNL PT PTT WNL -Zetia started per neuro recs -Neuro cleared patient for discharge Code(s): I63.9 - CEREBRAL INFARCTION, UNSPECIFIED (2) Other nonspecific abnormal finding of lung field Current Visit: Yes Status: Acute Assessment & Plan: -CXR with JUDI infiltrate -continue levaquin -Follow up OP for pulm nodule Code(s): R91.8 - OTHER NONSPECIFIC ABNORMAL FINDING OF LUNG FIELD (3) Seizure disorder Current Visit: Yes Status: Acute Assessment & Plan: -Dilantin level per neuro recs -continue home meds -seizure precautions Code(s): G40.909 - EPILEPSY, UNSP, NOT INTRACTABLE, WITHOUT STATUS EPILEPTICUS (4) HTN (hypertension) Current Visit: Yes Status: Acute Assessment & Plan: -Goal now is normotensive -Antihypertensives restarted Code(s): I10 - ESSENTIAL (PRIMARY) HYPERTENSION (5) Asthma Current Visit: Yes Status: Acute Assessment & Plan: Code(s): J45.909 - UNSPECIFIED ASTHMA, UNCOMPLICATED (6) Osteoporosis Current Visit: Yes Status: Acute Assessment & Plan: -Noted incidental osteopenia on imaging. -Continue chronic management; ensure fall precautions. Code(s): M81.0 - AGE-RELATED OSTEOPOROSIS W/O CURRENT PATHOLOGICAL FRACTURE (7) GERD (gastroesophageal reflux disease) Current Visit: Yes Status: Acute Assessment & Plan: -continue home meds Code(s): K21.9 - GASTRO-ESOPHAGEAL REFLUX DISEASE WITHOUT ESOPHAGITIS (8) HLD (hyperlipidemia) Current Visit: Yes Status: Acute Assessment & Plan: -Continue ezetimibe; lipid panel noted Code(s): E78.5 - HYPERLIPIDEMIA, UNSPECIFIED (9) Urinary tract infection Current Visit: Yes Status: Acute Assessment & Plan: -UA suspicious for UTI, Code(s): I63.9 - CEREBRAL INFARCTION, UNSPECIFIED Telemedicine Encounter - Telemedicine Encounter Telemedicine Encounter: "The entirety of this encounter was performed via Telemedicine" This visit was performed using real-time audio and video connection between my location and thepatients locationwith the assistance of a surrogateat the patients location. Written or verbal consent was obtained from the patient/guardian to perform this visit using[facility] technology. Any patient questions regarding the telemedicine interaction were answered. - Discharge Disposition: DC TO ANY "OTHER" [facility] Condition: Stable Prescriptions: No Action Montelukast Sodium 10 mg [Singulair 10 MG] 10 mg PO DAILY Escitalopram Oxalate [Lexapro] 20 mg PO DAILY Phenytoin Sodium Extended [Dilantin] 300 mg PO HS Amlodipine Besylate [Norvasc] 10 mg PO HS Losartan Potassium 100 mg PO DAILY Potassium Chloride Tab* [Klor Con] 10 meq PO BID PANTOPRAZOLE 40 mg Tablet [Protonix 40MG Tablet] 40 mg PO BID ALPRAZolam [Alprazolam] 2 mg PO BID Celecoxib 100 mg [celeBREX 100 MG] 100 mg PO BID Ergocalciferol (Vitamin D2) [Vitamin D2] 1,250 mcg PO WEEKLY Cyanocobalamin 1000 Mcg/ml [Cyanocobalamin B-12 1000 MCG/ML] 1,000 mcg SQ .MONTHLY Pregabalin 75 mg PO BID Doxazosin Mesylate 2 mg PO DAILY Ezetimibe 10 mg [Zetia 10 MG] 10 mg PO DAILY Furosemide 20 mg [Lasix 20 mg] 20 mg PO DAILY Prednisone 10 mg [Deltasone 10 mg] 10 mg PO DAILY PRN PRN PRN Reason: pain Additional Instructions: [facility] Orders PT/OT/ST Eval & Treat Regular Diet See attached med list for current medication orders Follow up with: LNYN LOCKWOOD DO [NON-STAFF PHY W/O PRIVILEGES, NEUROLOGY] - 06/03/25 1:30 pm VARGAS,EDMUNDO, IT APPLICATION ADMINISTRATOR [Primary Care Provider, [facility]ILY [facility]ACTICE] - 05/09/25 1:30 pm
[2025-05-02 12:56] VITALS: BP 183/87; PULSE 70; RESP 18; TEMP 97.7; O2SAT 97
[2025-05-02] MEDS ORDERED: NON-FORMULARY ITEM (Amlodipine Besylate [Norvasc] 10 MG Tablet) PO SCH (22:00)
--- NOTE | 2025-05-03 10:07 | PCM.DCORD ---
- Discharge Disposition: Skilled Care @ [facility] Condition: Stable Prescriptions: New Aspirin EC 81 mg [Ecotrin 81 mg] 81 mg PO DAILY #30 tablet Levofloxacin [Levofloxacin 500 MG Tablet] 500 mg PO DAILY 3 Days tablet Clopidogrel Bisulfate [Plavix] 75 mg PO DAILY #30 tablet Continue Montelukast Sodium 10 mg [Singulair 10 MG] 10 mg PO DAILY Escitalopram Oxalate [Lexapro] 20 mg PO DAILY Phenytoin Sodium Extended [Dilantin] 300 mg PO HS Amlodipine Besylate [Norvasc] 10 mg PO HS Losartan Potassium 100 mg PO DAILY Potassium Chloride Tab* [Klor Con] 10 meq PO BID PANTOPRAZOLE 40 mg Tablet [Protonix 40MG Tablet] 40 mg PO BID Ergocalciferol (Vitamin D2) [Vitamin D2] 1,250 mcg PO WEEKLY Cyanocobalamin 1000 Mcg/ml [Cyanocobalamin B-12 1000 MCG/ML] 1,000 mcg SQ .MONTHLY Ezetimibe 10 mg [Zetia 10 MG] 10 mg PO DAILY Furosemide 20 mg [Lasix 20 mg] 20 mg PO DAILY ALPRAZolam [Alprazolam] 2 mg PO BID 3 Days #6 tablet Pregabalin 75 mg PO BID 3 Days #6 cap Discontinued Celecoxib 100 mg [celeBREX 100 MG] 100 mg PO BID Doxazosin Mesylate 2 mg PO DAILY Prednisone 10 mg [Deltasone 10 mg] 10 mg PO DAILY PRN PRN PRN Reason: pain Additional Instructions: [facility] Orders PT/OT/ST Eval & Treat Regular Diet See attached med list for current medication orders Follow up with: LYNN LOCKWOOD DO [NON-STAFF PHY W/O PRIVILEGES, NEUROLOGY] - 06/03/25 1:30 pm EDMUNDO VARGAS NP [Primary Care Provider, FAMILY PRACTICE] - 05/09/25 1:30 pm
[2025-05-20] MEDS ORDERED: Cyanocobalamin B-12 1000 MCG/ML SQ SCH (10:00)
== END 2025-05-02 14:26 ==
LOC: ED 09:50 → MED SURG 14:07
PROVIDERS: ADMIT Internal Medicine; ATTEND Internal Medicine
DX: I63.9 Cerebral infarction, unspecified (principal); R91.8 Other nonspecific abnormal finding of lung field; G40.909 Epilepsy, unspecified, not intractable, without status epilepticus; I10 Essential (primary) hypertension; J45.909 Unspecified asthma, uncomplicated; M81.0 Age-related osteoporosis without current pathological fracture; K21.9 Gastro-esophageal reflux disease without esophagitis; E78.5 Hyperlipidemia, unspecified; N39.0 Urinary tract infection, site not specified; R53.1 Weakness; Z79.899 Other long term (current) drug therapy